=== PATIENT | female | born 1950 | race Caucasian/White ===

== ENCOUNTER → 2024-03-08 | Outpatient (CLI) | payer MEDICARE | END | disposition home or self-care (01) | LOC: SHCH 09:57 | PROVIDERS: ATTEND Internal Medicine Cardiovascular Disease | DX: I48.91 Unspecified atrial fibrillation (principal) | CPT/HCPCS: 93306 ==

== ENCOUNTER 2024-11-27 16:49 | Inpatient (IN) | payer MEDICARE ==
[~2024-11-27] VITALS: Ht 152.4 cm; Wt 78.9 kg
[2024-11-27 17:19] LABS: APPEARANCE,URINE CLEAR (CLEAR); BILIRUBIN,URINE NEGATIVE (NEGATIVE); COLOR,URINE COLORLESS (YELLOW); GLUCOSE, URINE (UA) NEGATIVE (NEGATIVE); KETONES,URINE NEGATIVE (NEGATIVE); LEUKOCYTE ESTERASE ,URINE 250 Leu/uL (NEGATIVE); NITRATE,URINE NEGATIVE (NEGATIVE); OCCULT BLOOD,URINE SMALL (NEGATIVE); PH,URINE 5.5 (5.0-8.0); PROTEIN,URINE NEGATIVE (NEGATIVE); UROBILINOGEN,URINE 0.2 mg/dL (0.2-1.0)
[2024-11-27 17:20] LABS: ADD UA MICROSCOPIC YES
[2024-11-27 17:22] LABS: BACTERIA,URINE RARE /HPF (None Seen); RBC,URINE 0-1 /HPF (0-1); SQUAMOUS EPITHELIAL CELL,UR RARE /HPF (0-2)
[2024-11-27 17:37] LABS: BASOPHILS # (AUTO) 0.05 K/uL (0.00-0.20); BASOPHILS % (AUTO) 0.4 % (0.0-5.0); EOSINOPHILS # (AUTO) 0.02 K/uL (0.00-0.70); EOSINOPHILS % (AUTO) 0.2 % (0.0-8.0); HEMATOCRIT 41.7 % (36-48); IMMATURE GRANULOCYTE ABSOLUTE 0.05 K/uL (0-1); LYMPHOCYTES # (AUTO) 1.8 K/uL (1.0-4.8); LYMPHOCYTES % (AUTO) 13.8 % (21.0-51.0); MEAN CORPUSCULAR HEMOGLOBIN 29.7 pg (27.0-33.0); MEAN CORPUSCULAR HGB CONC 33.1 g/dL (32.0-36.0); MEAN CORPUSCULAR VOLUME 89.9 fL (79-99); MONOCYTES % (AUTO) 7.3 % (3.0-13.0); NEUTROPHILS # (AUTO) 10.1 K/uL (1.8-7.7); NEUTROPHILS % (AUTO) 77.9 % (40.0-77.0); PLATELET COUNT (AUTO) 252 K/uL (130-400); RED BLOOD CELL COUNT(AUTO) 4.64 MIL/uL (4.00-5.50); RED CELL DISTRIBUTION WIDTH 13.2 % (11.0-15.5)
[2024-11-27 17:46] LABS: CREATININE 1.2 mg/dL (0.5-1.0); POTASSIUM 3.8 mmol/L (3.5-5.1)
[2024-11-27] MEDS: 0.9%NACL 1000ML 1,000 ML IV SCH (18:07)
[2024-11-27] MEDS: ketOROlac 15MG/ML VIAL (15MG/ML) IV SCH (18:07)
[2024-11-27] MEDS: morPHINE 2 MG SYG IVP SCH (18:09)
--- NOTE | 2024-11-27 18:21 | HMCIMG ---
CT ABDOMEN WITHOUT CONTRAST. CT PELVIS WITHOUT CONTRAST. INDICATION: Right flank pain TECHNIQUE: Routine transaxial imaging using 5 mm slice thickness through the abdomen and pelvis without the administration of IV contrast. Thin slice reconstructions are also provided. Coronal and sagittal reformatted images acquired for interpretation. CT was performed with one or more of the following dose reduction techniques: Automated exposure control, adjustment of the mA and/or kV according to patient size, or use of iterative reconstruction technique. COMPARISON: None FINDINGS: ON NONCONTRAST IMAGING: ABDOMEN: Heart size is normal. Trace bilateral pleural effusions. Small hiatal hernia. 4 mm curvilinear calculus is nonobstructing at the upper pole of the left kidney and punctate nonobstructing calculus detected at the midportion. Additional 2 mm nonobstructing calculus at the lower pole of the left kidney. Tiny simple left renal cyst noted. 4.7 mm calculus within the far distal right ureter just proximal to the right ureterovesicular junction contributing to moderate right hydroureteronephrosis. 4.7 mm curvilinear calculus near the lower portion of the right kidney and smaller 2 mm nonobstructing calculus at the upper portion of the right kidney. A couple of small simple right renal cysts noted. The liver is normal in size and smooth in contour without biliary duct dilation. 10.0 mm simple left hepatic lobe cyst. The spleen is normal in size and attenuation. The gallbladder appears normal. The pancreas appears normal without pancreatic duct dilation. The adrenal glands appear normal. No significant abdominal, retrocrural or retroperitoneal adenopathy noted. No evidence for intra-abdominal free air or organized fluid collection. . Mild calcific plaque is noted along the abdominal aortic and iliac vessel johnson without aneurysmal dilation. PELVIS: No abnormal calcifications within the urinary bladder or distal ureters. No evidence for free air or organized pelvic fluid collection. No significant pelvic adenopathy detected. Visualized small and large bowel loops appear unremarkable. Terminal ileum appears unremarkable. The appendix is not well-visualized in its entirety. 2.2 cm partially-calcified uterine fibroid, and a few additional smaller fibroids. Extremely shallow lumbar dextroscoliosis. IMPRESSION: 1. 4.7 mm calculus within the far distal right ureter just proximal to the right ureterovesicular junction contributing to moderate right hydroureteronephrosis. 2. Nonobstructing bilateral nephrolithiasis. 3. Chronic degenerative multi fibroid uterus. 4. Small hiatal hernia. 5. Trace bilateral pleural effusions.
[2024-11-27] MEDS: hydroMORPHone 1 MG INJ IVP SCH (19:17)
[2024-11-27] MEDS ORDERED: hydroMORPHone 1 MG INJ IVP ONE (19:30)
--- NOTE | 2024-11-27 20:11 | HP ---
[facility] HISTORY AND PHYSICAL Date of Service: November 27, 2024 Time of Service: 20:11 NIRALI MAX MD (PCP) Attending/supervising physicians: Dr. Robles and Dr. Hattie Fernandez HISTORY OF PRESENT ILLNESS: Ms. Patel is a 74-year-old female with a history of A-Fib, GERD, High Cholesterol, Heart Disease, Hypertension, IBS, Kidney Stone, and sleep apnea who presented to the emergency department for evaluation of right flank pain. The patient reports being diagnosed with a right ureter stone three days ago at [facility] ER. She was discharged home. However over the last couple of days her pain has progressively worsened. She stated the stone measures approximately 2 mm. ED provider reports that patient presented to the ED in significant amount of pain. Denies any nausea, vomiting, fever, any other pain, problem or concern. CT abdomen and pelvis without contrast: 1. 4.7 mm calculus within the far distal right ureter just proximal to the right ureterovesicular junction contributing to moderate right hydroureteronephrosis. 2. Nonobstructing bilateral nephrolithiasis. 3. Chronic degenerative multi fibroid uterus. 4. Small hiatal hernia. 5. Trace bilateral pleural effusions. In ED the patient was administered Dilaudid 1 mg, morphine 2 mg, Toradol 15 mg, NS 1 L bolus. ED provider request patient be admitted with the diagnosis of right ureteral stone, intractable pain, leukocytosis. I assessed the patient in ED hallway. The patient appeared comfortable, in no distress, breathing was even and unlabored. Patient reports pain relief with the medication administered. I informed patient of labs, diagnostics, plan of care. She verbalized understanding and is in agreement with the plan. Plan and assessment are listed below. REVIEW OF SYSTEMS 12-point ROS reviewed with patient. All pertinent positives mentioned above. Otherwise negative, noncontributory, or nonpertinent. PAST MEDICAL HISTORY: As mentioned above PAST SURGICAL HISTORY: , shoulder surgery, neck plate PAST SOCIAL HISTORY: Denied alcohol, tobacco, illicit drug use Coded Allergies: Penicillins (Unverified Allergy, Unknown, 11/27/24) nitrofurantoin (Unverified Allergy, Unknown, 11/27/24) sulfamethoxazole (Unverified Allergy, Unknown, 11/27/24) trimethoprim (Unverified Allergy, Unknown, 11/27/24) Uncoded Allergies: STEOIDS (Allergy, Unknown, 11/27/24) PHYSICAL EXAM GENERAL APPEARANCE: The patient is awake, alert, and oriented, in no acute cardiopulmonary distress. NEUROLOGICAL: Cranial nerves II-XII grossly intact. Motor is 5/5 in bilateral upper and lower extremities proximal to distal. No sensory deficits. HEENT: Face is symmetric. Pupils are equal and reactive. Extraocular movements are intact. NECK: Supple. No JVD. No thyromegaly. No submental, submandibular, pre- /postauricular, occipital or supraclavicular lymphadenopathy. CHEST: Normal chest expansion. No Telemetry. LUNGS: Absence of any rales, rhonchi or any wheezing. CARDIOVASCULAR: Regular. S1 and S2 normal. No appreciable rubs, murmurs or gallops. ABDOMEN: Soft, nontender, and nondistended. There is no rebound, voluntary guarding, or rigidity. : Deferred. No [place]. EXTREMITIES: Non-edematous and not cyanotic. No clubbing. Good capillary refill. SKIN: No skin breakdown. Vital Sign (Last 24 Hours) 11/27/24 19:23 Temp 98.4 Pulse 101 Resp 18 B/P (MAP) 168/97 Pulse Ox 98 O2 Delivery Room Air* O2 Flow Rate 0 FiO2 21 LABS: Laboratory: Test 11/27/24 17:31 11/27/24 17:12 Range/Units White Blood Count 13.0 H 4.8-10.8 K/uL Red Blood Count 4.64 4.00-5.50 MIL/uL Hemoglobin 13.8 12.0-16.0 g/dL Hematocrit 41.7 36-48 % Mean Corpuscular Volume 89.9 79-99 fL Mean Corpuscular Hemoglobin 29.7 27.0-33.0 pg Mean Corpuscular Hemoglobin Concent 33.1 32.0-36.0 g/dL Red Cell Distribution Width 13.2 11.0-15.5 % Platelet Count 252 130-400 K/uL Mean Platelet Volume 10.2 7.5-10.5 fL Immature Granulocyte % (Auto) 0.4 0-1 % Neutrophils (%) (Auto) 77.9 H 40.0-77.0 % Lymphocytes (%) (Auto) 13.8 L 21.0-51.0 % Monocytes (%) (Auto) 7.3 3.0-13.0 % Eosinophils (%) (Auto) 0.2 0.0-8.0 % Basophils (%) (Auto) 0.4 0.0-5.0 % Neutrophils # (Auto) 10.1 H 1.8-7.7 K/uL Lymphocytes # (Auto) 1.8 1.0-4.8 K/uL Monocytes # (Auto) 1.0 0.1-1.0 K/uL Eosinophils # (Auto) 0.02 0.00-0.70 K/uL Basophils # (Auto) 0.05 0.00-0.20 K/uL Absolute Immature Granulocyte (auto 0.05 0-1 K/uL Nucleated Red Blood Cells 0.0 0.0-0.19 % Sodium Level 134 L 136-145 mmol/L Potassium Level 3.8 3.5-5.1 mmol/L Chloride Level 98 L 101-111 mmol/L Carbon Dioxide Level 24 21-32 mmol/L Blood Urea Nitrogen 18 7-18 mg/dL Creatinine 1.2 H 0.5-1.0 mg/dL Glomerular Filtration Rate Calc 47 >90 mL/min Random Glucose 115 H 70-105 mg/dL Total Calcium 9.5 8.5-10.1 mg/dL Urine Color COLORLESS YELLOW Urine Appearance CLEAR CLEAR Urine pH 5.5 5.0-8.0 Urine Specific [place] 1.004 1.001-1.031 Urine Protein NEGATIVE NEGATIVE mg/dL Urine Glucose (UA) NEGATIVE NEGATIVE mg/dL Urine Ketones NEGATIVE NEGATIVE mg/dL Urine Occult Blood SMALL H NEGATIVE Urine Nitrate NEGATIVE NEGATIVE Urine Bilirubin NEGATIVE NEGATIVE mg/dL Urine Urobilinogen 0.2 0.2-1.0 mg/dL Urine Leukocyte Esterase 250 H NEGATIVE Gloria/uL Urine RBC 0-1 0-1 /HPF Urine WBC 11-25 H 0-1 /HPF Urine Squamous Epithelial Cells RARE 0-2 /HPF Urine Bacteria RARE None Seen /HPF Current Medications Medications (Trade) Dose Ordered Sig/Luis Alfredo Route PRN Reason Start Time Stop Time Status Last Admin Dose Admin Hydromorphone HCl (DiLAUDid 1MG INJ) 1 mg ONCE IVP 11/27/24 19:30 11/27/24 23:59 11/27/24 19:17 1 MG Ketorolac Tromethamine (toRADol) 15 mg ONCE IV 11/27/24 17:30 11/27/24 22:30 11/27/24 18:07 15 MG Morphine Sulfate (morPHINE 2MG SYG) 2 mg ONCE IVP 11/27/24 18:00 11/27/24 23:00 11/27/24 18:09 2 MG Sodium Chloride 1,000 ml @ 0 mls/hr ONCE IV 11/27/24 17:30 11/28/24 17:29 11/27/24 18:07 1,000 MLS/HR DIAGNOSTICS / RADIOLOGY: [ ] ASSESSMENT: 4.7 mm calculus within the far distal right ureter just proximal to the right ureterovesicular junction contributing to moderate right hydroureteronephrosis, per CT on 11/27/2024 Nonobstructing bilateral nephrolithiasis, per CT on 11/27/2024 Chronic degenerative multi fibroid uterus, per CT on 11/27/2024 Small hiatal hernia, per CT on 11/27/2024 Acute complicated cystitis, POA Trace bilateral pleural effusions, per CT on 11/27/2024 Acute kidney injury, GFR 47(no prior GFR to compare baseline renal function) Acute dehydration Leukocytosis Electrolyte derangement (hyponatremia, hypochloremia) Chronic problem list: AFib, GERD, hypercholesteremia, coronary artery disease, hypertension, IBS, kidney stones, sleep apnea Multiple antibiotic allergies (penicillin, nitrofurantoin, sulfa, trimethoprime PLAN: -Admit to medical floor. -Start Levaquin 750 mg p.o. daily. -Start LR at 75 mL an hour. (ED administered NS1 L bolus) -Strain all urine. -Consult urologist. -P.r.n. medications for: Pain management, nausea, vomiting, fever, constipation, hypertension. -Glucometer checks AC & HS needed with insulin regular sliding scale coverage as needed. -Blood pressure checks every 4 hours and as needed. -Reconcile home medications once available. -Start labetalol IV as needed systolic blood pressure greater than 160 -AM labs: monitor renal and liver function, monitor electrolytes and replace PRN -GI and DVT prophylaxis: Protonix and Lovenox ADVANCED CARE PLANNING 1. Which of the following were discussed? Hospice Care - No Therapeutic options - Yes Advance Directives - Yes Other discussions - 2. Discussed with who? Patient 3. Voluntary nature of this service was explained to the patient? Yes 4. Amount of time spent - __ over 35 minutes 5. Reviewed by Physician? (if this service was performed by NPP) Yes ATTESTATION BY PHYSICIAN I have seen and examined the patient. I reviewed the documentation, medical decision making, and treatment plan as noted by the mid-level provider above. I agree with the findings and plan of care. VINICIO YOUNG [facility] November 27, 2024 20:11
--- NOTE | 2024-11-27 20:25 | ERN ---
General Chief Complaint: Flank Pain Stated Complaint: KIDNEY STONE PAIN Time Seen by MD: 17:06 Time Seen by Midlevel: 17:06 Source: patient History of Present Illness Initial Comments The patient is a 74-year-old female presenting to the emergency department for evaluation of right flank pain. The patient reports being diagnosed with a right ureter stone three days ago at [facility]. She was discharged home. However over the last couple of days her pain has progressively worsened. She states the stone measures approximately 2 mm. On arrival the patient appears to be in significant amount of pain. Denies any nausea vomiting or fever. Denies any other symptoms Allergies: Coded Allergies: Penicillins (Unverified Allergy, Unknown, 11/27/24) nitrofurantoin (Unverified Allergy, Unknown, 11/27/24) sulfamethoxazole (Unverified Allergy, Unknown, 11/27/24) trimethoprim (Unverified Allergy, Unknown, 11/27/24) Uncoded Allergies: STEOIDS (Allergy, Unknown, 11/27/24) Past Medical History Past Medical History: A-Fib, GERD, High Cholesterol, Heart Disease, Hypertension, IBS, Kidney Stone Medical History Other: SLEEP APNEA Past Surgical History: Surgical History Other: SHOULDERS, NECK PLATE ROS Dictation CONSTITUTIONAL: Negative except for HPI HEAD/FACE: Negative except for HPI EENT: Negative except for HPI RESPIRATORY: Negative except for HPI GASTROINTESTINAL/ABDOMINAL: Negative except for HPI GENITOURINARY: Negative except for HPI MUSCULOSKELETAL: Negative except for HPI INTEGUMENTARY: Negative except for HPI NEUROLOGICAL/PSYCH: Negative except for HPI HEMATOLOGIC/LYMPHATIC: Negative except for HPI All Systems Negative, Except as noted above. 13 point review of systems assessed and all negative except for above. Physical Exam Physical Exam Dictation Vital Signs reviewed General Appearance: Alert, oriented x 3, no acute distress, well developed, nourished. Head and Face: non-traumatic. Eyes: PERRL, pink conjunctivas, eyelid no trauma, anterior chamber with arcus senilis. Ears: Pinnas intact and no signs of trauma or erythema ear canals clear and no discharge TM no erythema Nose: No discharge, no bleeding. Oropharynx: Mouth normal, tongue pink, pharynx clear,no erythema, tonsils no exudates, no abscesses noted, mucous membrane moist Neck: Supple, non-tender, no thyromegaly, no masses, no JVD, no bruits Breast:Deferred Chest:No tenderness, no crepitus, no paradoxical movement, no retractions Lungs:Clear, well-ventilated, symmetric, no rales, no wheezing, no rhonchi, no stridor, good breath sounds bilaterally Heart: Regular rate, regular rhythm, no murmur, no gallops Vascular: no peripheral edema, Abdomen: Soft, positive bowel sounds, nondistended, no guarding, nontender, no rebound, no masses no hepatomegaly, no splenomegaly, no Sanchez's sign, no hernias. Rectal: Deferred Genital: Deferred Neurological: Normal speech, motor function intact, sensory function intact Musculoskeletal right CVA tenderness Extremities: nontender, full range of motion Skin: Color pink, dry, no turgor, no rash, no lacerations, no abrasions, no contusions. Lymphatic: Deferred Results Laboratory and Microbiology Lab and Micro Result Laboratory Tests Test 11/27/24 17:12 11/27/24 17:31 Urine Color COLORLESS (YELLOW) Urine Appearance CLEAR (CLEAR) Urine pH 5.5 (5.0-8.0) Urine Specific [place] 1.004 (1.001-1.031) Urine Protein NEGATIVE mg/dL (NEGATIVE) Urine Glucose (UA) NEGATIVE mg/dL (NEGATIVE) Urine Ketones NEGATIVE mg/dL (NEGATIVE) Urine Occult Blood SMALL (NEGATIVE) H Urine Nitrate NEGATIVE (NEGATIVE) Urine Bilirubin NEGATIVE mg/dL (NEGATIVE) Urine Urobilinogen 0.2 mg/dL (0.2-1.0) Urine Leukocyte Esterase 250 Gloria/uL (NEGATIVE) H Urine RBC 0-1 /HPF (0-1) Urine WBC 11-25 /HPF (0-1) H Urine Squamous Epithelial Cells RARE /HPF (0-2) Urine Bacteria RARE /HPF (None Seen) White Blood Count 13.0 K/uL (4.8-10.8) H Red Blood Count 4.64 MIL/uL (4.00-5.50) Hemoglobin 13.8 g/dL (12.0-16.0) Hematocrit 41.7 % (36-48) Mean Corpuscular Volume 89.9 fL (79-99) Mean Corpuscular Hemoglobin 29.7 pg (27.0-33.0) Mean Corpuscular Hemoglobin Concent 33.1 g/dL (32.0-36.0) Red Cell Distribution Width 13.2 % (11.0-15.5) Platelet Count 252 K/uL (130-400) Mean Platelet Volume 10.2 fL (7.5-10.5) Immature Granulocyte % (Auto) 0.4 % (0-1) Neutrophils (%) (Auto) 77.9 % (40.0-77.0) H Lymphocytes (%) (Auto) 13.8 % (21.0-51.0) L Monocytes (%) (Auto) 7.3 % (3.0-13.0) Eosinophils (%) (Auto) 0.2 % (0.0-8.0) Basophils (%) (Auto) 0.4 % (0.0-5.0) Neutrophils # (Auto) 10.1 K/uL (1.8-7.7) H Lymphocytes # (Auto) 1.8 K/uL (1.0-4.8) Monocytes # (Auto) 1.0 K/uL (0.1-1.0) Eosinophils # (Auto) 0.02 K/uL (0.00-0.70) Basophils # (Auto) 0.05 K/uL (0.00-0.20) Absolute Immature Granulocyte (auto 0.05 K/uL (0-1) Nucleated Red Blood Cells 0.0 % (0.0-0.19) Sodium Level 134 mmol/L (136-145) L Potassium Level 3.8 mmol/L (3.5-5.1) Chloride Level 98 mmol/L (101-111) L Carbon Dioxide Level 24 mmol/L (21-32) Blood Urea Nitrogen 18 mg/dL (7-18) Creatinine 1.2 mg/dL (0.5-1.0) H Glomerular Filtration Rate Calc 47 mL/min (>90) Random Glucose 115 mg/dL (70-105) H Total Calcium 9.5 mg/dL (8.5-10.1) Labs Reviewed?: Yes MDM MDM: Differential diagnosis: Ureter stone, pyelonephritis, urinary tract infection, MOLINA Rationale: Tests considered and ordered secondary to shared decision making include: Previous outside records reviewed: Old ER visits. Risk of complication and/or morbidity or mortality of patient management: None Medications-Per medication reconciliation Need for hospitalization: Patient does meet criteria for hospitalization. Need for emergency major/minor surgery: No There are no social concerns with this patient. Prescription drug management Prescriptions will include symptomatic care Patient's prior external medical records from other ER visits were reviewed by me as indicated. Prior testing and results from previous visits were reviewed. Prior tests were taken into account with medical decision making and resource utilization, independent historian/historians were used to obtain complete medical history. I independently interpreted the test that were performed, results were reviewed by me and considered findings on radiology if ordered. Medical management and examination interpretation discussions were had by me with other qualified healthcare professionals as indicated for the patient's care. ED Course Orders Procedure Category Date Status Time Cbc With Differential LAB 11/27/24 Complete 17:10 Basic Metabolic Panel LAB 11/27/24 Complete 17:10 Urinalysis Profile LAB 11/27/24 Complete 17:10 0.9%Nacl 1000ml (Ns PHA 11/27/24 In Process 1000ml) 17:30 Ketorolac PHA 11/27/24 In Process Tromethamine 15mg/Ml 17:30 Culture Urine FELIPE 11/27/24 In Process 17:20 Ct Abdomen/Pelvis W/O CT 11/27/24 Resulted Contrast 17:48 Morphine 2mg Syg PHA 11/27/24 In Process (Morphine 2mg Syg) 18:00 Hydromorphone 1 Mg PHA 11/27/24 Complete Inj (Dilaudid 1mg Inj 19:30 Hydromorphone 1 Mg PHA 11/27/24 In Process Inj (Dilaudid 1mg Inj 19:30 Current Medications Medications (Trade) Dose Ordered Sig/Luis Alfredo Route PRN Reason Start Time Stop Time Status Last Admin Dose Admin Hydromorphone HCl (DiLAUDid 1MG INJ) 1 mg ONCE IVP 11/27/24 19:30 11/27/24 23:59 11/27/24 19:17 Hydromorphone HCl (DiLAUDid 1MG INJ) 1 mg ONCE ONCE IVP 11/27/24 19:30 11/27/24 19:12 DC Ketorolac Tromethamine (toRADol) 15 mg ONCE IV 11/27/24 17:30 11/27/24 22:30 11/27/24 18:07 Morphine Sulfate (morPHINE 2MG SYG) 2 mg ONCE IVP 11/27/24 18:00 11/27/24 23:00 11/27/24 18:09 Sodium Chloride 1,000 ml @ 0 mls/hr ONCE IV 11/27/24 17:30 11/28/24 17:29 11/27/24 18:07 Vital Signs Date Time Temp Pulse Resp B/P (MAP) Pulse Ox O2 Delivery O2 Flow Rate FiO2 11/27/24 19:23 98.4 101 18 168/97 98 Room Air* 0 21 11/27/24 18:18 101 18 201/110 99 Room Air* 0 21 11/27/24 16:53 98.4 101 16 175/94 98 Room Air 0 [facility] [address] [place] [address] [id number] IMAGING REPORT Signed PATIENT: YURIY HOWELL MR#: [id number] : 1950 SEX: F AGE: 74 LOCATION: ED ORDER 48 STATUS: REG REPORT#: [id number] SERVICE 47 REASON: r/flank pain r/o ureter stone ORDERING PHYSICIAN: VIN GALICIA PROCEDURE: ABD PEL WO - CT ABDOMEN/PELVIS W/O CONTRAST CT ABDOMEN WITHOUT CONTRAST. CT PELVIS WITHOUT CONTRAST. INDICATION: Right flank pain TECHNIQUE: Routine transaxial imaging using 5 mm slice thickness through the abdomen and pelvis without the administration of IV contrast. Thin slice reconstructions are also provided. Coronal and sagittal reformatted images acquired for interpretation. CT was performed with one or more of the following dose reduction techniques: Automated exposure control, adjustment of the mA and/or kV according to patient size, or use of iterative reconstruction technique. COMPARISON: None FINDINGS: ON NONCONTRAST IMAGING: ABDOMEN: Heart size is normal. Trace bilateral pleural effusions. Small hiatal hernia. 4 mm curvilinear calculus is nonobstructing at the upper pole of the left kidney and punctate nonobstructing calculus detected at the midportion. Additional 2 mm nonobstructing calculus at the lower pole of the left kidney. Tiny simple left renal cyst noted. 4.7 mm calculus within the far distal right ureter just proximal to the right ureterovesicular junction contributing to moderate right hydroureteronephrosis. 4.7 mm curvilinear calculus near the lower portion of the right kidney and smaller 2 mm nonobstructing calculus at the upper portion of the right kidney. A couple of small simple right renal cysts noted. The liver is normal in size and smooth in contour without biliary duct dilation. 10.0 mm simple left hepatic lobe cyst. The spleen is normal in size and attenuation. The gallbladder appears normal. The pancreas appears normal without pancreatic duct dilation. The adrenal glands appear normal. No significant abdominal, retrocrural or retroperitoneal adenopathy noted. No evidence for intra-abdominal free air or organized fluid collection. . Mild calcific plaque is noted along the abdominal aortic and iliac vessel johnson without aneurysmal dilation. PELVIS: No abnormal calcifications within the urinary bladder or distal ureters. No evidence for free air or organized pelvic fluid collection. No significant pelvic adenopathy detected. Visualized small and large bowel loops appear unremarkable. Terminal ileum appears unremarkable. The appendix is not well-visualized in its entirety. 2.2 cm partially-calcified uterine fibroid, and a few additional smaller fibroids. Extremely shallow lumbar dextroscoliosis. IMPRESSION: 1. 4.7 mm calculus within the far distal right ureter just proximal to the right ureterovesicular junction contributing to moderate right hydroureteronephrosis. 2. Nonobstructing bilateral nephrolithiasis. 3. Chronic degenerative multi fibroid uterus. 4. Small hiatal hernia. 5. Trace bilateral pleural effusions. DICTATED BY: SOPHIA GRNAT MD DATE: 11/27/241814 ELECTRONICALLY SIGNED BY: SOPHIA GRANT MD DATE: 11/27/24 182 DX & DISP Disposition: Inpatient Departure Impression: Primary Impression: Right ureteral stone Additional Impressions: Intractable pain, Leukocytosis Condition: Stable Referrals: NIRALI MAX MD (PCP) I have reviewed the case, and I agree with, Diagnosis and Plan I performed the substantive portion of the visit. I have reviewed and personally made and approve the management plan that is documented in the note by myself or the ZOYA. I acknowledge for responsibility for the patient's managem ent plan. VIN GALICIA November 27, 2024 20:25
[2024-11-27 22:50] VITALS: BP 167/98; PULSE 89; RESP 20; TEMP 98.3
[2024-11-28] VITALS (7 sets, daily range): BP systolic 124–155; BP diastolic 79–98; PULSE 81–92; RESP 16–21; TEMP 97.8–98.6; O2SAT 94
[2024-11-28] MEDS ORDERED: acetaMINOPHEN 650 MG SUPPOSITORY RC PRN
[2024-11-28] MEDS ORDERED: acetaMINOPHEN 325 MG TAB PO PRN
[2024-11-28] MEDS ORDERED: TEMAZepam 15 MG CAPSULE PO PRN
[2024-11-28] MEDS ORDERED: LAbetaLOL 20MG SYG IV PRN
[2024-11-28] MEDS ORDERED: LACTULOSE 20 GM/30 ML UDCUP PO PRN
[2024-11-28] MEDS ORDERED: ondanSETRON 4MG INJ IVP PRN
[2024-11-28] MEDS ORDERED: HYDROcodone/APAP 5/325 1 TAB TABLET PO PRN
[2024-11-28] MEDS ORDERED: hydroMORPHone 1 MG INJ IVP PRN
[2024-11-28] MEDS: LACTATED RINGERS 1000ML 1,000 ML IV SCH (00:35)
[2024-11-28] MEDS: levoFLOXacin 750 MG/D5W 150ML BAG IV SCH (00:35)
[2024-11-28] MEDS ORDERED: METO-408 PO (00:51)
[2024-11-28] MEDS: INSULIN humuLIN R 100 UNIT/ML 3ML SQ SCH (04:52)
[2024-11-28 05:20] LABS: HEMATOCRIT 39.8 % (36-48); MEAN CORPUSCULAR HEMOGLOBIN 29.6 pg (27.0-33.0); MEAN CORPUSCULAR HGB CONC 32.9 g/dL (32.0-36.0); MEAN CORPUSCULAR VOLUME 89.8 fL (79-99); RED BLOOD CELL COUNT(AUTO) 4.43 MIL/uL (4.00-5.50); RED CELL DISTRIBUTION WIDTH 13.1 % (11.0-15.5); WHITE BLOOD COUNT (AUTO) 9.4 K/uL (4.8-10.8)
[2024-11-28 05:43] LABS: ALBUMIN 3.2 g/dL (3.5-5.0); BILIRUBIN,TOTAL 0.8 mg/dL (0.2-1.0); CREATININE 1.3 mg/dL (0.5-1.0); MAGNESIUM 2.4 mg/dL (1.80-2.40); PHOSPHORUS 3.5 mg/dL (2.5-4.9); POTASSIUM 3.8 mmol/L (3.5-5.1); THYROID STIMULATING HORMONE 2.15 uIU/mL (0.36-3.74); TOTAL PROTEIN, SERUM 7.4 g/dL (6.0-8.3)
[2024-11-28 05:55] LABS: HEMOGLOBIN A1C 6.1 % (4.0-6.0)
[2024-11-28] MEDS ORDERED: MAGNESIUM 2GM PREMIX 50ML 50 ML IV PRN (08:30)
[2024-11-28] MEDS ORDERED: PoTASSium chloRIDE 20MEQ ER 20 MEQ ERTAB PO PRN (08:30)
[2024-11-28] MEDS ORDERED: PoTASSium chloRIDE 20MEQ/100ML 100 ML IV PRN (08:30)
[2024-11-28] MEDS ORDERED: PoTASSium chl 10% ELIXIR 20MEQ 20 MEQ/15 ML UDCUP PO PRN (08:30)
--- NOTE | 2024-11-28 08:35 | PN ---
[facility] PROGRESS NOTE Date of Service: November 28, 2024 Time of Service: 08:26 SUBJECTIVE: [ ] admission date: 11/27/24 PCP: Kiko Varner MD Ms. Patel is a 74-year-old female with a history of A-Fib, GERD, High Cholesterol, Heart Disease, Hypertension, IBS, Kidney Stone, and sleep apnea who presented to the emergency department for evaluation of right flank pain. The patient reports being diagnosed with a right ureter stone three days ago at [facility] ER. She was discharged home. However over the last couple of days her pain has progressively worsened. She stated the stone measures approximately 2 mm[address] on this admission CT abdomen and pelvis without contrast revealed a 1. 4.7 mm calculus within the far distal right ureter just proximal to the right ureterovesicular junction contributing to moderate right hydroureteronephrosis. 11/28/24 patient is seen patient was evaluated patient is fully awake alert oriented x3. patient has dull pain to her right flank was medicated earlier waiting for urologists recommendations. Answer all questions. REVIEW OF SYSTEMS 12-point ROS reviewed with patient. All pertinent positives mentioned above. Otherwise negative, noncontributory, or nonpertinent. PHYSICAL EXAM GENERAL APPEARANCE: The patient is awake, alert, and oriented, in no acute cardiopulmonary distress. NEUROLOGICAL: Cranial nerves II-XII grossly intact. Motor is 5/5 in bilateral upper and lower extremities proximal to distal. No sensory deficits. HEENT: Face is symmetric. Pupils are equal and reactive. Extraocular movements are intact. NECK: Supple. No JVD. No thyromegaly. No submental, submandibular, pre- /postauricular, occipital or supraclavicular lymphadenopathy. CHEST: Normal chest expansion. No Telemetry. LUNGS: Absence of any rales, rhonchi or any wheezing. CARDIOVASCULAR: Regular. S1 and S2 normal. No appreciable rubs, murmurs or gallops. ABDOMEN: Soft, nontender, and nondistended. There is no rebound, voluntary guarding, or rigidity. : Deferred. No [place]. EXTREMITIES: Non-edematous and not cyanotic. No clubbing. Good capillary refill. SKIN: No skin breakdown. Vital Signs (last 8hr) Date Time Temp Pulse Resp B/P (MAP) Pulse Ox O2 Delivery O2 Flow Rate FiO2 11/28/24 08:03 98.4 82 18 149/89 100 Room Air 11/28/24 03:10 98.6 88 20 133/80 97 Room Air LABS: Laboratory: Test 11/28/24 04:51 11/28/24 04:28 11/27/24 17:31 11/27/24 17:12 Range/Units Whole Blood Glucose 108 70-110 MG/DL White Blood Count 9.4 # 4.8-10.8 K/uL Red Blood Count 4.43 4.00-5.50 MIL/uL Hemoglobin 13.1 12.0-16.0 g/dL Hematocrit 39.8 36-48 % Mean Corpuscular Volume 89.8 79-99 fL Mean Corpuscular Hemoglobin 29.6 27.0-33.0 pg Mean Corpuscular Hemoglobin Concent 32.9 32.0-36.0 g/dL Red Cell Distribution Width 13.1 11.0-15.5 % Platelet Count 232 130-400 K/uL Mean Platelet Volume 10.4 7.5-10.5 fL Nucleated Red Blood Cells 0.0 0.0-0.19 % Sodium Level 138 136-145 mmol/L Potassium Level 3.8 3.5-5.1 mmol/L Chloride Level 102 101-111 mmol/L Carbon Dioxide Level 26 21-32 mmol/L Blood Urea Nitrogen 13 7-18 mg/dL Creatinine 1.3 H 0.5-1.0 mg/dL Glomerular Filtration Rate Calc 43 >90 mL/min Random Glucose 104 70-105 mg/dL Hemoglobin A1c 6.1 H 4.0-6.0 % Estimated Average Glucose (eAG) 128 H 70-126 mg/dL Total Calcium 8.6 8.5-10.1 mg/dL Phosphorus Level 3.5 2.5-4.9 mg/dL Magnesium Level 2.40 1.80-2.40 mg/dL Total Bilirubin 0.8 0.2-1.0 mg/dL Aspartate Amino Transf (AST/SGOT) 20 10-37 U/L Alanine Aminotransferase (ALT/SGPT) 21 12-78 U/L Alkaline Phosphatase 72 50-136 U/L Total Protein 7.4 6.0-8.3 g/dL Albumin 3.2 L 3.5-5.0 g/dL Thyroid Stimulating Hormone (TSH) 2.15 0.36-3.74 uIU/mL Immature Granulocyte % (Auto) 0.4 0-1 % Neutrophils (%) (Auto) 77.9 H 40.0-77.0 % Lymphocytes (%) (Auto) 13.8 L 21.0-51.0 % Monocytes (%) (Auto) 7.3 3.0-13.0 % Eosinophils (%) (Auto) 0.2 0.0-8.0 % Basophils (%) (Auto) 0.4 0.0-5.0 % Neutrophils # (Auto) 10.1 H 1.8-7.7 K/uL Lymphocytes # (Auto) 1.8 1.0-4.8 K/uL Monocytes # (Auto) 1.0 0.1-1.0 K/uL Eosinophils # (Auto) 0.02 0.00-0.70 K/uL Basophils # (Auto) 0.05 0.00-0.20 K/uL Absolute Immature Granulocyte (auto 0.05 0-1 K/uL Urine Color COLORLESS YELLOW Urine Appearance CLEAR CLEAR Urine pH 5.5 5.0-8.0 Urine Specific [place] 1.004 1.001-1.031 Urine Protein NEGATIVE NEGATIVE mg/dL Urine Glucose (UA) NEGATIVE NEGATIVE mg/dL Urine Ketones NEGATIVE NEGATIVE mg/dL Urine Occult Blood SMALL H NEGATIVE Urine Nitrate NEGATIVE NEGATIVE Urine Bilirubin NEGATIVE NEGATIVE mg/dL Urine Urobilinogen 0.2 0.2-1.0 mg/dL Urine Leukocyte Esterase 250 H NEGATIVE Gloria/uL Urine RBC 0-1 0-1 /HPF Urine WBC 11-25 H 0-1 /HPF Urine Squamous Epithelial Cells RARE 0-2 /HPF Urine Bacteria RARE None Seen /HPF Current Medications Medications (Trade) Dose Ordered Sig/Luis Alfredo Route PRN Reason Start Time Stop Time Status Last Admin Dose Admin Acetaminophen (TYLenol 325MG TAB) 650 mg Q6H PRN PO FEVER/MILD PAIN LEVEL 1-3 11/28/24 00:00 12/28/24 00:00 Acetaminophen (TYLenol 650MG SUPPOSITORY) 650 mg Q6H PRN RC FEVER / MILD PAIN 1-3 IF NPO 11/28/24 00:00 12/28/24 00:00 Acetaminophen/ Hydrocodone Bitart (NORco 5/325MG) 1 tab Q6H PRN PO PAIN LEVEL 4 TO 6 11/28/24 00:00 11/28/24 07:41 DC Acetaminophen/ Hydrocodone Bitart (NORco 5/325MG) 2 tab Q6H PRN PO PAIN LEVEL 7 TO 10 11/27/24 23:45 12/02/24 23:44 Docusate Sodium (COLace 100MG CAP) 100 mg BID PRN PO c 11/28/24 00:00 12/28/24 00:00 Hydromorphone HCl (DiLAUDid 1MG INJ) 1 mg ONCE IVP 11/27/24 19:30 11/27/24 23:56 DC 11/27/24 19:17 1 MG Hydromorphone HCl (DiLAUDid 1MG INJ) 1 mg Q4H PRN IVP SEVERE PAIN (7-10) 11/28/24 00:00 11/28/24 07:41 DC Insulin Human Regular (humuLIN R 100 UNIT/ML 3ML) INSULIN SLIDING SCAL... ACHS SQ 11/28/24 07:30 12/28/24 07:29 Ketorolac Tromethamine (toRADol) 15 mg ONCE IV 11/27/24 17:30 11/27/24 22:30 DC 11/27/24 18:07 15 MG Ketorolac Tromethamine (toRADol) 15 mg Q6H PRN IM MODERATE PAIN (4-6) 11/28/24 00:00 12/03/24 00:00 Labetalol HCl (TRANdate 20MG SYG) 10 mg Q2H PRN IV SBP GREATER THAN 180 11/28/24 00:00 12/28/24 00:00 Lactated Ringer's 1,000 ml @ 75 mls/hr [id number] IV 11/28/24 00:00 12/28/24 00:00 11/28/24 00:35 75 MLS/HR Lactulose (Constulose 20gm/ 30ml Udcup) 20 gm Q6H PRN PO CONSTIPATION 11/28/24 00:00 12/28/24 00:00 Levofloxacin/ Dextrose (LEvaquIN 750 MG/ D5W 150 ML) 750 mg Q48H IV 11/27/24 23:50 12/07/24 23:49 11/28/24 00:35 750 MG Morphine Sulfate (morPHINE 2MG SYG) 2 mg ONCE IVP 11/27/24 18:00 11/27/24 23:00 DC 11/27/24 18:09 2 MG Ondansetron HCl (zoFRAN 4MG INJ) 4 mg Q6H PRN IVP NAUSEA/VOMITING 11/28/24 00:00 12/28/24 00:00 Pantoprazole Sodium (PROTonix 40MG TAB) 40 mg DAILY PO 11/28/24 09:00 12/28/24 08:59 Sodium Chloride 1,000 ml @ 0 mls/hr ONCE IV 11/27/24 17:30 11/28/24 17:29 11/27/24 18:07 1,000 MLS/HR Temazepam (restORIL 15 MG CAP) 15 mg HS PRN PO INSOMNIA/SLEEP 11/28/24 00:00 12/28/24 00:00 DIAGNOSTICS / RADIOLOGY: [ ] ASSESSMENT: 4.7 mm calculus within the far distal right ureter just proximal to the right ureterovesicular junction contributing to moderate right hydroureteronephrosis, per CT on 11/27/2024 Nonobstructing bilateral nephrolithiasis, per CT on 11/27/2024 Chronic degenerative multi fibroid uterus, per CT on 11/27/2024 Small hiatal hernia, per CT on 11/27/2024 Acute complicated cystitis, POA Trace bilateral pleural effusions, per CT on 11/27/2024 Acute kidney injury, GFR 47(no prior GFR to compare baseline renal function) Acute dehydration Leukocytosis Electrolyte derangement (hyponatremia, hypochloremia) Chronic problem list: AFib, GERD, hypercholesteremia, coronary artery disease, hypertension, IBS, kidney stones, sleep apnea Multiple antibiotic allergies (penicillin, nitrofurantoin, sulfa, trimethoprime PLAN: -Admit to medical floor. -Consult urologist. will wait for recommendations. antibiotic: Levaquin 750 mg p.o. daily. IVF's; LR at 75 mL an hour. Flomax 0.4 mg po daily Strain all urine. replaced electrolytes as needed basis to keep K+ above 4.0 and Mag above 2.0 -P.r.n. medications for: cont with Pain management, -Glucometer checks AC & HS needed with insulin regular sliding scale coverage as needed. -GI and DVT prophylaxis: Protonix and Lovenox all questions answered further orders as response to tx and specialist recommendations. ATTESTATION BY PHYSICIAN I have seen and examined the patient. I reviewed the documentation, medical decision making, and treatment plan as noted by the mid-level provider above. I agree with the findings and plan of care. MAKSIM ORLANDO MD, ELIZABETH NP November 28, 2024 08:35
[2024-11-28] MEDS: PANTOPrazole 40 MG TAB DR PO SCH (10:15)
[2024-11-28] MEDS: tamSULOsin HCL 0.4 MG CAP.ER.24H PO SCH (10:15)
--- NOTE | 2024-11-28 11:49 | NUR ---
DCP: HOME Pt currently lives in her home with her Jesús Patel [phone]. pt does not report any food, custodial, and/or utilities insecurities. Pt does not have any DME, home health, or provider services. Pt is able to complete ADLs independently. PCP is Dr. Kiko Varner and uses [facility] for any RX needs. At [place] pt would go home and will assist with transportation. Addendum: 11/28/24 at 1152 by MIMA MCGOWAN SS Amended: Links added.
[2024-11-28] MEDS: metOPROLol sucCINATE 25 MG TAB.SR.24H PO SCH (16:35)
[2024-11-28] MEDS: HYDROcodone/APAP 5/325 1 TAB TABLET PO PRN (22:46)
--- NOTE | 2024-11-28 22:50 | CONS ---
CONSULTATION NOTE Date of Service: November 28, 2024 Reason for Consultation: Obstructing 4.7 mm calculus in the right distal ureter Requesting Physician: Hospitalist HISTORY OF PRESENT ILLNESS: 74-year-old female with presented to the emergency department for evaluation of right flank pain. The patient reports being diagnosed with a right ureter stone three days ago at [facility]. She was discharged home. However over the last couple of days her pain has progressively worsened. She stated the stone measures approximately several mm. ED provider reports that patient presented to the ED in significant amount of pain, described as a dull ache in the right flank region radiating to right groin, severity at the time of presentation was a 10 on a scale of 1-10.. Denies any nausea, vomiting, fever, any other pain, problem or concern. CT abdomen and pelvis without contrast: 1. 4.7 mm calculus within the far distal right ureter just proximal to the right ureterovesicular junction contributing to moderate right hydroureteronephrosis. 2. Nonobstructing bilateral nephrolithiasis. 3. Chronic degenerative multi fibroid uterus. 4. Small hiatal hernia. 5. Trace bilateral pleural effusions. Patient was admitted to the floor for supportive care with a urological consult. REVIEW OF SYSTEMS CONSTITUTIONAL: Denies fever, chills, or fatigue. HEAD/FACE: No signs of trauma. EENT: Denies eye pain, blurred vision, double vision, or light sensitivity. RESPIRATORY: Denies shortness of breath, cough, wheezing CARDIOVASCULAR: Denies chest pain, palpitation, syncope GASTROINTESTINAL/ABDOMINAL: Denies abdominal pain, constipation, diarrhea, nausea or vomiting GENITOURINARY: Flank pain MUSCULOSKELETAL: Denies joint pain, tenderness, or trauma. INTEGUMENTARY: Denies rash or itchiness NEUROLOGICAL/PSYCH: Denies anxiety, depression, heat or cold intolerance. PAST MEDICAL HISTORY: Atrial fibrillation Gastroesophageal reflux disease Hypercholesteremia Coronary arterial disease Hypertension Irritable bowel syndrome Nephrolithiasis Obstructive sleep apnea PAST SURGICAL HISTORY: Kidney stone procedure PAST SOCIAL HISTORY: Denies smoking Denies ethanol Denies recreational drugs FAMILY HISTORY: Noncontributory to presenting complaint Coded Allergies: Penicillins (Unverified Allergy, Unknown, 11/27/24) nitrofurantoin (Unverified Allergy, Unknown, 11/27/24) sulfamethoxazole (Unverified Allergy, Unknown, 11/27/24) trimethoprim (Unverified Allergy, Unknown, 11/27/24) Uncoded Allergies: STEOIDS (Allergy, Unknown, 11/27/24) PHYSICAL EXAM EYES: Anicteric. Pupils equal and reactive. HENT: No oral thrush seen, moist Oral mucosa NECK: Supple, no JVD or thyromegaly. LUNGS: Good air entry. No rales, no rhonchi. CARDIOVASCULAR: S1, S2 regular. No murmur heard. ABDOMEN: Soft, non tender, bowel sounds present, no organomegaly CENTRAL NERVOUS SYSTEM: Awake, alert, oriented x 3. No focal deficits. SKIN: No rashes, no swelling. LYMPHATICS: No peripheral lymphadenopathy MUSCULOSKELETAL: No joint swelling, erythema or tenderness. EXTREMITIES: No cyanosis or clubbing BACK: No deformity, no pressure ulcer. GENITOURINARY: No costovertebral angle tenderness, genitalia is normal Vital Sign (Last 24 Hours) 11/28/24 11/28/24 08:00 20:16 Temp 97.9 Pulse 84 Resp 20 B/P (MAP) 125/79 Pulse Ox 94 O2 Delivery Room Air O2 Flow Rate 0 FiO2 21 Intake & Output (last 24hrs) 11/27/24 11/27/24 11/28/24 15:00 23:00 07:00 Output Total 900 ml Balance -900 ml LABS: Laboratory: Test 11/28/24 19:49 11/28/24 04:28 11/27/24 17:31 11/27/24 17:12 Range/Units Whole Blood Glucose 122 H 70-110 MG/DL White Blood Count 9.4 # 4.8-10.8 K/uL Red Blood Count 4.43 4.00-5.50 MIL/uL Hemoglobin 13.1 12.0-16.0 g/dL Hematocrit 39.8 36-48 % Mean Corpuscular Volume 89.8 79-99 fL Mean Corpuscular Hemoglobin 29.6 27.0-33.0 pg Mean Corpuscular Hemoglobin Concent 32.9 32.0-36.0 g/dL Red Cell Distribution Width 13.1 11.0-15.5 % Platelet Count 232 130-400 K/uL Mean Platelet Volume 10.4 7.5-10.5 fL Nucleated Red Blood Cells 0.0 0.0-0.19 % Sodium Level 138 136-145 mmol/L Potassium Level 3.8 3.5-5.1 mmol/L Chloride Level 102 101-111 mmol/L Carbon Dioxide Level 26 21-32 mmol/L Blood Urea Nitrogen 13 7-18 mg/dL Creatinine 1.3 H 0.5-1.0 mg/dL Glomerular Filtration Rate Calc 43 >90 mL/min Random Glucose 104 70-105 mg/dL Hemoglobin A1c 6.1 H 4.0-6.0 % Estimated Average Glucose (eAG) 128 H 70-126 mg/dL Total Calcium 8.6 8.5-10.1 mg/dL Phosphorus Level 3.5 2.5-4.9 mg/dL Magnesium Level 2.40 1.80-2.40 mg/dL Total Bilirubin 0.8 0.2-1.0 mg/dL Aspartate Amino Transf (AST/SGOT) 20 10-37 U/L Alanine Aminotransferase (ALT/SGPT) 21 12-78 U/L Alkaline Phosphatase 72 50-136 U/L Total Protein 7.4 6.0-8.3 g/dL Albumin 3.2 L 3.5-5.0 g/dL Thyroid Stimulating Hormone (TSH) 2.15 0.36-3.74 uIU/mL Immature Granulocyte % (Auto) 0.4 0-1 % Neutrophils (%) (Auto) 77.9 H 40.0-77.0 % Lymphocytes (%) (Auto) 13.8 L 21.0-51.0 % Monocytes (%) (Auto) 7.3 3.0-13.0 % Eosinophils (%) (Auto) 0.2 0.0-8.0 % Basophils (%) (Auto) 0.4 0.0-5.0 % Neutrophils # (Auto) 10.1 H 1.8-7.7 K/uL Lymphocytes # (Auto) 1.8 1.0-4.8 K/uL Monocytes # (Auto) 1.0 0.1-1.0 K/uL Eosinophils # (Auto) 0.02 0.00-0.70 K/uL Basophils # (Auto) 0.05 0.00-0.20 K/uL Absolute Immature Granulocyte (auto 0.05 0-1 K/uL Urine Color COLORLESS YELLOW Urine Appearance CLEAR CLEAR Urine pH 5.5 5.0-8.0 Urine Specific [place] 1.004 1.001-1.031 Urine Protein NEGATIVE NEGATIVE mg/dL Urine Glucose (UA) NEGATIVE NEGATIVE mg/dL Urine Ketones NEGATIVE NEGATIVE mg/dL Urine Occult Blood SMALL H NEGATIVE Urine Nitrate NEGATIVE NEGATIVE Urine Bilirubin NEGATIVE NEGATIVE mg/dL Urine Urobilinogen 0.2 0.2-1.0 mg/dL Urine Leukocyte Esterase 250 H NEGATIVE Gloria/uL Urine RBC 0-1 0-1 /HPF Urine WBC 11-25 H 0-1 /HPF Urine Squamous Epithelial Cells RARE 0-2 /HPF Urine Bacteria RARE None Seen /HPF DIAGNOSTICS / RADIOLOGY: CT stone protocol obtained in the emergency department today 11/28/2024 reviewed. Small bilateral nonobstructing stones. Right-sided hydroureteronephrosis down to an obstructing 4.7 mm calculus several cm from the right UVJ. There is a possibility of a calcification of the uterine wall. Right-sided nephromegaly. ASSESSMENT: 74-year-old female presents to the hospital with a an obstructing right ureteral calculus diagnosed a few days ago at [facility] in [place], presented because of worsening symptoms. PLAN: 1. It is very unfortunate that this patient was kept NPO all day. When I met wi th patient she was more upset about being made NPO then anything us. The decision to take patient to the operating room has to be a coordinated one. Even though we appreciate our non surgical colleagues trying to get patient is ready for the operating room by making them NPO, if they do not conferred with the us, to make sure we available to take the patient to the operating room then patients get very dissatisfied. 2. I have had a long conversation with this patient, she has responded to conservative management this evening. We are making plans to bring her to the operating room tomorrow 11/29/2024. I was very breanna with the patient that I would not be available for surgical intervention until late in the evening. To that regard and as usual, I will put in the my orders in anticipation for the procedure tomorrow. 3. If however patient passes the stone between now and tomorrow evening when we plan for surgical intervention then of course a trip to the up breathing room will be obviated 4. Thank you for involving us in the care of this patient 60 minutes spent to complete a consult, more than half of the time spent in counseling and coordination of care and addressing all questions and concerns post by patient, some time was spent discussing with members of her care team, the rest of the time was spent reviewing medical records past and present, including laboratory and imaging data from this admission. ZOYA REMY MD November 28, 2024 22:50
[2024-11-29] VITALS (21 sets, daily range): BP systolic 109–168; BP diastolic 77–120; PULSE 71–95; RESP 15–20; TEMP 97.4–98.3; O2SAT 96–97
[2024-11-29] MEDS: ketOROlac 15MG/ML VIAL (15MG/ML) IM PRN (00:26)
[2024-11-29 05:34] LABS: BASOPHILS # (AUTO) 0.06 K/uL (0.00-0.20); BASOPHILS % (AUTO) 0.6 % (0.0-5.0); EOSINOPHILS # (AUTO) 0.15 K/uL (0.00-0.70); EOSINOPHILS % (AUTO) 1.5 % (0.0-8.0); HEMATOCRIT 41.9 % (36-48); IMMATURE GRANULOCYTE ABSOLUTE 0.03 K/uL (0-1); LYMPHOCYTES # (AUTO) 3.2 K/uL (1.0-4.8); LYMPHOCYTES % (AUTO) 30.7 % (21.0-51.0); MEAN CORPUSCULAR HEMOGLOBIN 29.8 pg (27.0-33.0); MEAN CORPUSCULAR HGB CONC 32.5 g/dL (32.0-36.0); MEAN CORPUSCULAR VOLUME 91.9 fL (79-99); MONOCYTES % (AUTO) 9.4 % (3.0-13.0); NEUTROPHILS # (AUTO) 5.9 K/uL (1.8-7.7); NEUTROPHILS % (AUTO) 57.5 % (40.0-77.0); PLATELET COUNT (AUTO) 262 K/uL (130-400); RED BLOOD CELL COUNT(AUTO) 4.56 MIL/uL (4.00-5.50); RED CELL DISTRIBUTION WIDTH 13.2 % (11.0-15.5); WHITE BLOOD COUNT (AUTO) 10.3 K/uL (4.8-10.8)
[2024-11-29 06:08] LABS: ALBUMIN 3.4 g/dL (3.5-5.0); BILIRUBIN,TOTAL 0.5 mg/dL (0.2-1.0); CREATININE 1.4 mg/dL (0.5-1.0); MAGNESIUM 2.1 mg/dL (1.80-2.40); TOTAL PROTEIN, SERUM 7.6 g/dL (6.0-8.3)
--- NOTE | 2024-11-29 11:15 | PN ---
[facility] PROGRESS NOTE Date of Service: November 29, 2024 Time of Service: 11:12 SUBJECTIVE: [ ] admission date: 11/27/24 PCP: Kiko Varner MD Ms. Patel is a 74-year-old female with a history of A-Fib, GERD, High Cholesterol, Heart Disease, Hypertension, IBS, Kidney Stone, and sleep apnea who presented to the emergency department for evaluation of right flank pain. The patient reports being diagnosed with a right ureter stone three days ago at [facility] ER. She was discharged home. However over the last couple of days her pain has progressively worsened. She stated the stone measures approximately 2 mm. on this admission CT abdomen and pelvis without contrast revealed a 1. 4.7 mm calculus within the far distal right ureter just proximal to the right ureterovesicular junction contributing to moderate right hydroureteronephrosis. 11/28/24 patient is seen patient was evaluated patient is fully awake alert oriented x3. patient has dull pain to her right flank was medicated earlier waiting for urologists recommendations. Answer all questions. 11/29/24 patient is seen patient is sitting on the edge of the bed. Patient is scheduled for a cystoscopy right ureteral stone removal retograde pyelogram stent placement this evening. She continues to have flank pain to the right side. Patient denied chest pain shortness a breath or hematuria. REVIEW OF SYSTEMS 12-point ROS reviewed with patient. All pertinent positives mentioned above. Otherwise negative, noncontributory, or nonpertinent. PHYSICAL EXAM GENERAL APPEARANCE: The patient is awake, alert, and oriented, in no acute cardiopulmonary distress. NEUROLOGICAL: Cranial nerves II-XII grossly intact. Motor is 5/5 in bilateral upper and lower extremities proximal to distal. No sensory deficits. HEENT: Face is symmetric. Pupils are equal and reactive. Extraocular movements are intact. NECK: Supple. No JVD. No thyromegaly. No submental, submandibular, pre- /postauricular, occipital or supraclavicular lymphadenopathy. CHEST: Normal chest expansion. No Telemetry. LUNGS: Absence of any rales, rhonchi or any wheezing. CARDIOVASCULAR: Regular. S1 and S2 normal. No appreciable rubs, murmurs or gallops. ABDOMEN: Soft, nontender, and nondistended. There is no rebound, voluntary guarding, or rigidity. : Deferred. No [place]. EXTREMITIES: Non-edematous and not cyanotic. No clubbing. Good capillary refill. SKIN: No skin breakdown. Vital Signs (last 8hr) Date Time Temp Pulse Resp B/P (MAP) Pulse Ox O2 Delivery O2 Flow Rate FiO2 11/29/24 08:00 98.2 81 20 131/91 96 Room Air 11/29/24 08:00 96 Room Air* 0 21 LABS: Laboratory: Test 11/29/24 05:24 11/29/24 04:57 11/28/24 04:28 11/27/24 17:12 Range/Units White Blood Count 10.3 4.8-10.8 K/uL Red Blood Count 4.56 4.00-5.50 MIL/uL Hemoglobin 13.6 12.0-16.0 g/dL Hematocrit 41.9 36-48 % Mean Corpuscular Volume 91.9 79-99 fL Mean Corpuscular Hemoglobin 29.8 27.0-33.0 pg Mean Corpuscular Hemoglobin Concent 32.5 32.0-36.0 g/dL Red Cell Distribution Width 13.2 11.0-15.5 % Platelet Count 262 130-400 K/uL Mean Platelet Volume 10.3 7.5-10.5 fL Immature Granulocyte % (Auto) 0.3 0-1 % Neutrophils (%) (Auto) 57.5 40.0-77.0 % Lymphocytes (%) (Auto) 30.7 21.0-51.0 % Monocytes (%) (Auto) 9.4 3.0-13.0 % Eosinophils (%) (Auto) 1.5 0.0-8.0 % Basophils (%) (Auto) 0.6 0.0-5.0 % Neutrophils # (Auto) 5.9 1.8-7.7 K/uL Lymphocytes # (Auto) 3.2 1.0-4.8 K/uL Monocytes # (Auto) 1.0 0.1-1.0 K/uL Eosinophils # (Auto) 0.15 0.00-0.70 K/uL Basophils # (Auto) 0.06 0.00-0.20 K/uL Absolute Immature Granulocyte (auto 0.03 0-1 K/uL Nucleated Red Blood Cells 0.0 0.0-0.19 % Sodium Level 137 136-145 mmol/L Potassium Level 4.0 3.5-5.1 mmol/L Chloride Level 102 101-111 mmol/L Carbon Dioxide Level 26 21-32 mmol/L Blood Urea Nitrogen 24 H 7-18 mg/dL Creatinine 1.4 H 0.5-1.0 mg/dL Glomerular Filtration Rate Calc 39 >90 mL/min Random Glucose 108 H 70-105 mg/dL Total Calcium 9.1 8.5-10.1 mg/dL Magnesium Level 2.10 1.80-2.40 mg/dL Total Bilirubin 0.5 0.2-1.0 mg/dL Aspartate Amino Transf (AST/SGOT) 21 10-37 U/L Alanine Aminotransferase (ALT/SGPT) 22 12-78 U/L Alkaline Phosphatase 81 50-136 U/L Total Protein 7.6 6.0-8.3 g/dL Albumin 3.4 L 3.5-5.0 g/dL Whole Blood Glucose 102 70-110 MG/DL Hemoglobin A1c 6.1 H 4.0-6.0 % Estimated Average Glucose (eAG) 128 H 70-126 mg/dL Phosphorus Level 3.5 2.5-4.9 mg/dL Thyroid Stimulating Hormone (TSH) 2.15 0.36-3.74 uIU/mL Urine Color COLORLESS YELLOW Urine Appearance CLEAR CLEAR Urine pH 5.5 5.0-8.0 Urine Specific [place] 1.004 1.001-1.031 Urine Protein NEGATIVE NEGATIVE mg/dL Urine Glucose (UA) NEGATIVE NEGATIVE mg/dL Urine Ketones NEGATIVE NEGATIVE mg/dL Urine Occult Blood SMALL H NEGATIVE Urine Nitrate NEGATIVE NEGATIVE Urine Bilirubin NEGATIVE NEGATIVE mg/dL Urine Urobilinogen 0.2 0.2-1.0 mg/dL Urine Leukocyte Esterase 250 H NEGATIVE Gloria/uL Urine RBC 0-1 0-1 /HPF Urine WBC 11-25 H 0-1 /HPF Urine Squamous Epithelial Cells RARE 0-2 /HPF Urine Bacteria RARE None Seen /HPF Current Medications Medications (Trade) Dose Ordered Sig/Luis Alfredo Route PRN Reason Start Time Stop Time Status Last Admin Dose Admin Acetaminophen (TYLenol 325MG TAB) 650 mg Q6H PRN PO FEVER/MILD PAIN LEVEL 1-3 11/28/24 00:00 12/28/24 00:00 Acetaminophen (TYLenol 650MG SUPPOSITORY) 650 mg Q6H PRN RC FEVER / MILD PAIN 1-3 IF NPO 11/28/24 00:00 12/28/24 00:00 Acetaminophen/ Hydrocodone Bitart (NORco 5/325MG) 1 tab Q6H PRN PO PAIN LEVEL 4 TO 6 11/28/24 00:00 11/28/24 07:41 DC Acetaminophen/ Hydrocodone Bitart (NORco 5/325MG) 2 tab Q6H PRN PO PAIN LEVEL 7 TO 10 11/27/24 23:45 12/02/24 23:44 11/28/24 22:46 2 TAB Docusate Sodium (COLace 100MG CAP) 100 mg BID PRN PO c 11/28/24 00:00 12/28/24 00:00 Hydromorphone HCl (DiLAUDid 1MG INJ) 1 mg ONCE IVP 11/27/24 19:30 11/27/24 23:56 DC 11/27/24 19:17 1 MG Hydromorphone HCl (DiLAUDid 1MG INJ) 1 mg Q4H PRN IVP SEVERE PAIN (7-10) 11/28/24 00:00 11/28/24 07:41 DC Insulin Human Regular (humuLIN R 100 UNIT/ML 3ML) INSULIN SLIDING SCAL... ACHS SQ 11/28/24 07:30 12/28/24 07:29 Ketorolac Tromethamine (toRADol) 15 mg ONCE IV 11/27/24 17:30 11/27/24 22:30 DC 11/27/24 18:07 15 MG Ketorolac Tromethamine (toRADol) 15 mg Q6H PRN IM MODERATE PAIN (4-6) 11/28/24 00:00 12/03/24 00:00 11/29/24 00:26 15 MG Labetalol HCl (TRANdate 20MG SYG) 10 mg Q2H PRN IV SBP GREATER THAN 180 11/28/24 00:00 12/28/24 00:00 Lactated Ringer's 1,000 ml @ 75 mls/hr [id number] IV 11/28/24 00:00 12/28/24 00:00 11/28/24 00:35 75 MLS/HR Lactulose (Constulose 20gm/ 30ml Udcup) 20 gm Q6H PRN PO CONSTIPATION 11/28/24 00:00 12/28/24 00:00 Levofloxacin/ Dextrose (LEvaquIN 750 MG/ D5W 150 ML) 750 mg Q48H IV 11/27/24 23:50 12/07/24 23:49 11/28/24 00:35 750 MG Magnesium Sulfate 50 ml @ 0 mls/hr PROTOCOL PRN IV low mag level 11/28/24 08:30 12/28/24 08:29 Metoprolol Succinate (TopROL XL) 25 mg DAILY PO 11/28/24 14:00 12/28/24 13:59 11/29/24 09:24 25 MG Morphine Sulfate (morPHINE 2MG SYG) 2 mg ONCE IVP 11/27/24 18:00 11/27/24 23:00 DC 11/27/24 18:09 2 MG Ondansetron HCl (zoFRAN 4MG INJ) 4 mg Q6H PRN IVP NAUSEA/VOMITING 11/28/24 00:00 12/28/24 00:00 Pantoprazole Sodium (PROTonix 40MG TAB) 40 mg DAILY PO 11/28/24 09:00 12/28/24 08:59 11/29/24 09:24 40 MG Potassium Chloride 100 ml @ 100 mls/hr AD PRN IV POTASSIUM PROTOCOL 11/28/24 08:30 12/28/24 08:29 Potassium Chloride (K-Dur/Klor-Con 20meq) 20 meq AD PRN PO POTASSIUM PROTOCOL 11/28/24 08:30 12/28/24 08:29 Potassium Chloride (KCl 10% Elixir 20meq/15ml) 20 meq AD PRN PO POTASSIUM PROTOCOL 11/28/24 08:30 12/28/24 08:29 Sodium Chloride 1,000 ml @ 0 mls/hr ONCE IV 11/27/24 17:30 11/28/24 17:29 DC 11/27/24 18:07 1,000 MLS/HR Tamsulosin HCl (FloMAX) 0.4 mg DAILY PO 11/28/24 09:00 12/28/24 08:59 11/29/24 09:24 0.4 MG Temazepam (restORIL 15 MG CAP) 15 mg HS PRN PO INSOMNIA/SLEEP 11/28/24 00:00 12/28/24 00:00 DIAGNOSTICS / RADIOLOGY: [ ] ASSESSMENT: 4.7 mm calculus within the far distal right ureter just proximal to the right ureterovesicular junction contributing to moderate right hydroureteronephrosis, per CT on 11/27/2024 Nonobstructing bilateral nephrolithiasis, per CT on 11/27/2024 Chronic degenerative multi fibroid uterus, per CT on 11/27/2024 Small hiatal hernia, per CT on 11/27/2024 Acute complicated cystitis, POA Trace bilateral pleural effusions, per CT on 11/27/2024 Acute kidney injury, ATN Acute dehydration Leukocytosis Electrolyte derangement (hyponatremia, hypochloremia) Chronic problem list: AFib, GERD, hypercholesteremia, coronary artery disease, hypertension, IBS, kidney stones, sleep apnea Multiple antibiotic allergies (penicillin, nitrofurantoin, sulfa, trimethoprime PLAN: -Admit to medical floor. -Consult urologist. scheduled for cystoscopy right ureteral stone removal retograde pyelogram stent placement antibiotic: Levaquin 750 mg p.o. daily. IVF's; LR at 75 mL will continue will get a bolus 500 ml x1. will monitor bun and creatinine: ongoing surveillance Flomax 0.4 mg po daily replaced electrolytes as needed basis to keep K+ above 4.0 and Mag above 2.0 -P.r.n. medications for: cont with Pain management, -Glucometer checks AC & HS needed with insulin regular sliding scale coverage as needed. -GI and DVT prophylaxis: Protonix and Lovenox all questions answered further orders as response to tx and specialist recommendations. ATTESTATION BY PHYSICIAN I have seen and examined the patient. I reviewed the documentation, medical decision making, and treatment plan as noted by the mid-level provider above. I agree with the findings and plan of care. MAKSIM ORLANDO MD, ELIZABETH NP November 29, 2024 11:15
[2024-11-29] MEDS ORDERED: MIDAZOLAM HCL 1 MG/ML 2ML VIAL ONE (17:50)
[2024-11-29] MEDS ORDERED: rocuRONium bROMide 10MG/1ML 5ML VL ONE (17:51)
[2024-11-29] MEDS ORDERED: FENTanyl CITRate PF 50 MCG/1 ML 2ML VIAL ONE ×3 (17:51→21:47)
[2024-11-29] MEDS ORDERED: proPOFol 10 MG/ML 20ML VIAL IV ONE (17:51)
[2024-11-29] MEDS ORDERED: phenylEPHRINE HCL 10 MG/ML 1ML VIAL IV ONE (19:39)
[2024-11-29] MEDS ORDERED: ondanSETRON 4MG INJ ONE (20:15)
[2024-11-29] MEDS ORDERED: ceFAZolin SODIUM 1 GM VIAL ONE (20:39)
--- NOTE | 2024-11-29 20:50 | NUR ---
NURSING NOTES PATIENT TAKEN TO OR AROUND 1999 FOR CYSTOSCOPY IN STABLE CONDITION,AAOX4. DENIES C/O PAIN. RESP. EVEN AND UNLABORED.
[2024-11-29] MEDS ORDERED: IOHEXOL-350 50ML VIAL IV ONE (20:59)
[2024-11-29] MEDS: IOHEXOL-350 50ML VIAL IV ONE (21:20)
[2024-11-29] MEDS ORDERED: GLYCOPYRROLATE 0.2 MG/ML 5 ML VIAL ONE (21:47)
[2024-11-29] MEDS ORDERED: ketOROlac 30MG VIAL (30MG/ML) ONE ×2 (21:47→21:48)
[2024-11-29] MEDS ORDERED: NEOSTIGMINE METHYLSULFATE 1MG/ML IV ONE (21:47)
--- NOTE | 2024-11-29 21:59 | OP ---
Operative Note: DATE OF PROCEDURE: 11/29/24 SURGEON: ZOYA REMY MD AUTOMOTIVE BRAKE SPECIALIST: Operating room staff ANESTHESIA: General anesthesia ANESTHESIOLOGIST/ACID CONDENSER: Anesthesia staff PREOPERATIVE DIAGNOSIS: 1. Obstructing 6 mm calculus in the right distal ureter 2. Right hydronephrosis POSTOPERATIVE DIAGNOSIS: 1. Obstructing 6 mm calculus in the right distal ureter 2. Right hydronephrosis 3. Right distal ureteral stricture SYNOPSIS: Right ureteral Stricture dilation performed, stone extracted and stent placed PROCEDURE: 1. 00500 Cystourethroscopy with right ureteroscopy and manipulation and removal of a right distal ureteral calculus 2. 05599 Cystourethroscopy with right ureteroscopy with treatment of a right distal ureteral stricture 3. 54649 Cystourethroscopy with insertion of a right ureteral stent 4. 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 Was 1st seen at [facility], was discharged home on expectant management. Came to [facility] yesterday morning was admitted on the floor managed conservatively. No clinical improvement, recommended for stone intervention for which she presented this evening. DESCRIPTION OF PROCEDURE: Patient identified in the holding area, consent verified. Patient received 2 g of Ancef and brought to the operating suite. She was placed in the supine position, after induction she underwent general endotracheal anesthesia. Next she was placed in low lithotomy, her genitalia was prepped she was draped and a time-out was performed. We introduced a standard cystoscope 22 Ethiopian with a 30 degree endoscope through meatus which was patent. Urethra was normal. We entered the bladder severely four quadrants no abnormalities or lesions identified. Ureteral orifice x2 identified in yurok positions effluxing clear urine. The right UO identified cannulated with a an open-ended ureteral catheter and a retrograde pyelogram was obtained. Hydroureteronephrosis appreciated. We advanced a wire into the right collecting system at this point we noticed effluxing of purulent urine. Next with the wire in place we attempted semi-rigid ureteroscopy by encountered a right distal ureteral stricture. This was treated in a segmental fashion using a 15 Ethiopian by 10 cm ureteral balloon dilator. Once this was completed we proceeded with ureteroscopy encountered the stone. We used a ZeroTip basket to remove the stone in his entirety and sent it for chemical analysis. Once the stone was completely removed, retrograde pyelogram showed persistent hydro nephrosis so a decision was made to place a seven Ethiopian by 22 cm double-J stent with the appropriate proximal and distal coils. Bladder was empty satisfactorily, there were no complications. Disposition: Patient will be transferred back to the floor once she meets criteria, we will recommend discharge from a urological standpoint and for her to see us in our office in [place] 10-14 days for stent removal ZOYA REMY MD November 29, 2024 21:59
[2024-11-29] MEDS: hydroMORPHone 1 MG INJ ONE (22:23)
[2024-11-29] MEDS: hydroMORPHone 1 MG INJ IVP STA (23:31)
[2024-11-30] VITALS (8 sets, daily range): BP systolic 132–165; BP diastolic 73–109; PULSE 66–96; RESP 18–20; TEMP 97.4–98.3; O2SAT 98
[2024-11-30 03:52] LABS: BASOPHILS # (AUTO) 0.03 K/uL (0.00-0.20); BASOPHILS % (AUTO) 0.4 % (0.0-5.0); EOSINOPHILS # (AUTO) 0.11 K/uL (0.00-0.70); EOSINOPHILS % (AUTO) 1.6 % (0.0-8.0); IMMATURE GRANULOCYTE ABSOLUTE 0.02 K/uL (0-1); LYMPHOCYTES # (AUTO) 1.8 K/uL (1.0-4.8); MEAN CORPUSCULAR HEMOGLOBIN 29.8 pg (27.0-33.0); MEAN CORPUSCULAR VOLUME 90.2 fL (79-99); MONOCYTES # (AUTO) 0.7 K/uL (0.1-1.0); MONOCYTES % (AUTO) 9.8 % (3.0-13.0); NEUTROPHILS # (AUTO) 4.1 K/uL (1.8-7.7); NEUTROPHILS % (AUTO) 60.9 % (40.0-77.0); PLATELET COUNT (AUTO) 215 K/uL (130-400); WHITE BLOOD COUNT (AUTO) 6.7 K/uL (4.8-10.8)
[2024-11-30] MEDS: traMADol HCL 50 MG TABLET PO PRN (04:09)
[2024-11-30 04:17] LABS: BILIRUBIN,TOTAL 0.4 mg/dL (0.2-1.0); CREATININE 1.1 mg/dL (0.5-1.0); MAGNESIUM 1.7 mg/dL (1.80-2.40); POTASSIUM 3.7 mmol/L (3.5-5.1); TOTAL PROTEIN, SERUM 6.8 g/dL (6.0-8.3)
[2024-11-30] MEDS: FAMOTIDINE 20MG VIAL IV ONE (07:12)
[2024-11-30] MEDS: ketOROlac 30MG VIAL (30MG/ML) ONE (07:12)
[2024-11-30] MEDS: doCUSate SODIUM 100 MG CAP PO PRN (08:16)
--- NOTE | 2024-11-30 09:10 | HMCIMG ---
Fluoroscopic guidance History: RT Ureteral calculus, Cysto Fluoroscopic guidance provided. Procedure by ordering physician in operating room suite with fluoroscopic guidance. Several spot images were obtained. Impression: Fluoroscopic guidance.
[2024-11-30] MEDS ORDERED: LEVO-70 PO (11:44)
[2024-11-30] MEDS ORDERED: TAMS-55 PO (11:57)
--- NOTE | 2024-11-30 12:04 | DS ---
Discharge Summary Hospital Course Summary: admission date: 11/27/24 PCP: Kiko Max MD Ms. Patel is a 74-year-old female with a history of A-Fib, GERD, High Cholesterol, Heart Disease, Hypertension, IBS, Kidney Stone, and sleep apnea who presented to the emergency department for evaluation of right flank pain. The patient reports being diagnosed with a right ureter stone three days ago at [facility] ([place]). She was discharged home. However over the last couple of days her pain has progressively worsened. She stated the stone measures approximately 2 mm. on this admission CT abdomen and pelvis without contrast revealed a 1. 4.7 mm calculus within the far distal right ureter just proximal to the right ureterovesicular junction contributing to moderate right hydroureteronephrosis. 11/28/24 patient is seen patient was evaluated patient is fully awake alert oriented x3. patient has dull pain to her right flank was medicated earlier waiting for urologists recommendations. Answer all questions. 11/29/24 patient is seen patient is sitting on the edge of the bed. Patient is scheduled for a cystoscopy right ureteral stone removal retograde pyelogram stent placement this evening. She continues to have flank pain to the right s dieter. Patient denied chest pain shortness a breath or hematuria. 11/30/24 patient is clinically stable for discharge no fevers no chills or flank pain. Patient is voiding adequately. Status post stent placement given to obstructive 6 mm calculus in the right distal ureter right hydronephrosis in right distal urethral stricture we will follow-up with urology 10-14 days for removal of stent. 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(s): RUN DATE: 11/29/24 [facility] 1 RUN TIME: [id number] [address] Department of [employer] [facility] # [id number] Occupational Therapist Aide: Ovidio Alejandre DO Specimen Report PATIENT: YURIY PATEL ACCT: [id number] LOC: 4D U: [id number] AGE/SX: 74/F ROOM: 423 RE11/27/[address]: CARLOS ARGUETA MD : [id number] BED: 1 DIS: STATUS: ADM IN TLOC: SPEC: [id number] TAMARA: 11/27/24-1711 STATUS: COMP REQ: [id number] RECD: 11/27/24-[address]: VIN GALICIA SOURCE: URINE CC ENTR: 11/27/[address]: KIKO MAX MD [facility]: JESSICA CHACON DO ORDERED: URINE CULTURE Procedure Result Sameer Date-Time URINE CULTURE Final 11/29/24-633 REPORT URINE 50,000 TO 100,000 CFU MIXED CAROLINE CONTAMINATION NO FURTHER STUDIES PENDING REASON: r/flank pain r/o ureter stone ORDERING PHYSICIAN: VIN GALICIA PROCEDURE: ABD PEL WO - CT ABDOMEN/PELVIS W/O CONTRAST CT ABDOMEN WITHOUT CONTRAST. CT PELVIS WITHOUT CONTRAST. INDICATION: Right flank pain TECHNIQUE: Routine transaxial imaging using 5 mm slice thickness through the abdomen and pelvis without the administration of IV contrast. Thin slice reconstructions are also provided. Coronal and sagittal reformatted images acquired for interpretation. CT was performed with one or more of the following dose reduction techniques: Automated exposure control, adjustment of the mA and/or kV according to patient size, or use of iterative reconstruction technique. COMPARISON: None FINDINGS: ON NONCONTRAST IMAGING: ABDOMEN: Heart size is normal. Trace bilateral pleural effusions. Small hiatal hernia. 4 mm curvilinear calculus is nonobstructing at the upper pole of the left kidney and punctate nonobstructing calculus detected at the midportion. Additional 2 mm nonobstructing calculus at the lower pole of the left kidney. Tiny simple left renal cyst noted. 4.7 mm calculus within the far distal right ureter just proximal to the right ureterovesicular junction contributing to moderate right hydroureteronephrosis. 4.7 mm curvilinear calculus near the lower portion of the right kidney and smaller 2 mm nonobstructing calculus at the upper portion of the right kidney. A couple of small simple right renal cysts noted. The liver is normal in size and smooth in contour without biliary duct dilation. 10.0 mm simple left hepatic lobe cyst. The spleen is normal in size and attenuation. The gallbladder appears normal. The pancreas appears normal without pancreatic duct dilation. The adrenal glands appear normal. No significant abdominal, retrocrural or retroperitoneal adenopathy noted. No evidence for intra-abdominal free air or organized fluid collection. . Mild calcific plaque is noted along the abdominal aortic and iliac vessel johnson without aneurysmal dilation. PELVIS: No abnormal calcifications within the urinary bladder or distal ureters. No evidence for free air or organized pelvic fluid collection. No significant pelvic adenopathy detected. Visualized small and large bowel loops appear unremarkable. Terminal ileum appears unremarkable. The appendix is not well-visualized in its entirety. 2.2 cm partially-calcified uterine fibroid, and a few additional smaller fibroids. Extremely shallow lumbar dextroscoliosis. IMPRESSION: 1. 4.7 mm calculus within the far distal right ureter just proximal to the right ureterovesicular junction contributing to moderate right hydroureteronephrosis. 2. Nonobstructing bilateral nephrolithiasis. 3. Chronic degenerative multi fibroid uterus. 4. Small hiatal hernia. 5. Trace bilateral pleural effusions. Procedure(s): Operative Note: DATE OF PROCEDURE: 11/29/24 SURGEON: ZOYA REMY MD DIETARY SUPERVISOR: Operating room staff ANESTHESIA: General anesthesia ANESTHESIOLOGIST/SAND DIGGER: Anesthesia staff PREOPERATIVE DIAGNOSIS: 1. Obstructing 6 mm calculus in the right distal ureter 2. Right hydronephrosis POSTOPERATIVE DIAGNOSIS: 1. Obstructing 6 mm calculus in the right distal ureter 2. Right hydronephrosis 3. Right distal ureteral stricture SYNOPSIS: Right ureteral Stricture dilation performed, stone extracted and stent placed PROCEDURE: 1. 30134 Cystourethroscopy with right ureteroscopy and manipulation and removal of a right distal ureteral calculus 2. 85089 Cystourethroscopy with right ureteroscopy with treatment of a right distal ureteral stricture 3. 39871 Cystourethroscopy with insertion of a right ureteral stent 4. 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 Was 1st seen at [facility], was discharged home on expectant management. Came to [facility] yesterday morning was admitted on the floor managed conservatively. No clinical improvement, recommended for stone intervention for which she presented this evening. DESCRIPTION OF PROCEDURE: Patient identified in the holding area, consent verified. Patient received 2 g of Ancef and brought to the operating suite. She was placed in the supine position, after induction she underwent general endotracheal anesthesia. Next she was placed in low lithotomy, her genitalia was prepped she was draped and a time-out was performed. We introduced a standard cystoscope 22 Algerian with a 30 degree endoscope through meatus which was patent. Urethra was normal. We entered the bladder severely four quadrants no abnormalities or lesions identified. Ureteral orifice x2 identified in [place] positions effluxing clear urine. The right UO identified cannulated with a an open-ended ureteral catheter and a retrograde pyelogram was obtained. Hydroureteronephrosis appreciated. We advanced a wire into the right collecting system at this point we noticed effluxing of purulent urine. Next with the wire in place we attempted semi-rigid ureteroscopy by encountered a right distal ureteral stricture. This was treated in a segmental fashion using a 15 Algerian by 10 cm ureteral balloon dilator. Once this was completed we proceeded with ureteroscopy encountered the stone. We used a ZeroTip basket to remove the stone in his entirety and sent it for chemical analysis. Once the stone was completely removed, retrograde pyelogram showed persistent hydro nephrosis so a decision was made to place a seven Algerian by 22 cm double-J stent with the appropriate proximal and distal coils. Bladder was empty satisfactorily, there were no complications. Disposition: Patient will be transferred back to the floor once she meets criteria, we will recommend discharge from a urological standpoint and for her to see us in our office in [place] 10-14 days for stent removal ZOYA REMY MD November 29, 2024 21:59 Electronically Signed by: ZOYA REMY Assessment/Plan: Discharged dx/s 4.7 mm calculus within the far distal right ureter just proximal to the right ureterovesicular junction contributing to moderate right hydroureteronephrosis, per CT on 11/27/2024 s/p; Cystoscopy findings: Obstructing 6 mm calculus in the right distal ureter, right hydronephrosis and right distal ureteral stricture Right ureteral Stricture dilation performed, stone extracted and stent placed Nonobstructing bilateral nephrolithiasis, per CT on 11/27/2024 Chronic degenerative multi fibroid uterus, per CT on 11/27/2024 Small hiatal hernia, per CT on 11/27/2024 Acute complicated cystitis, POA Trace bilateral pleural effusions, per CT on 11/27/2024 Acute kidney injury, ATN Acute dehydration Leukocytosis Electrolyte derangement (hyponatremia, hypochloremia) Chronic problem list: AFib, GERD, hypercholesteremia, coronary artery disease, hypertension, IBS, kidney stones, sleep apnea Multiple antibiotic allergies (penicillin, nitrofurantoin, sulfa, trimethoprime PLAN: ADMISSION DATE: 11/30/2024 DISCHARGE DATE: 11/27/2024 DISPOSITION: Home CONDITION: Stable FLOWER BUNCHER OR PICKER(S): Urology FOLLOW UP APPOINTMENT(S): PCP: 2-[address] Prakash Boyer 1-2 wks. PROCEDURES: Cystourethroscopy see attachment IMAGING (S) report attached to summary : CT abd/pelvis MICROBIOLOGY: report attached to summary;urine ACTIVITY: ab kristin HOME MEDICATIONS: will continue upon discharged CHANGES ON HOME MEDICATIONS; none NEW MEDICATIONS see below TEACHING: side effects and adverse reaction of new medications Emergency instructions: The patient was instructed to present to the nearest Emergency Department or call 911 should their symptoms return or worsen. Discharge Instructions: REASON: r/flank pain r/o ureter stone ORDERING PHYSICIAN: VIN GALICIA PROCEDURE: ABD PEL WO - CT ABDOMEN/PELVIS W/O CONTRAST CT ABDOMEN WITHOUT CONTRAST. CT PELVIS WITHOUT CONTRAST. INDICATION: Right flank pain TECHNIQUE: Routine transaxial imaging using 5 mm slice thickness through the abdomen and pelvis without the administration of IV contrast. Thin slice reconstructions are also provided. Coronal and sagittal reformatted images acquired for interpretation. CT was performed with one or more of the following dose reduction techniques: Automated exposure control, adjustment of the mA and/or kV according to patient size, or use of iterative reconstruction technique. COMPARISON: None FINDINGS: ON NONCONTRAST IMAGING: ABDOMEN: Heart size is normal. Trace bilateral pleural effusions. Small hiatal hernia. 4 mm curvilinear calculus is nonobstructing at the upper pole of the left kidney and punctate nonobstructing calculus detected at the midportion. Additional 2 mm nonobstructing calculus at the lower pole of the left kidney. Tiny simple left renal cyst noted. 4.7 mm calculus within the far distal right ureter just proximal to the right ureterovesicular junction contributing to moderate right hydroureteronephrosis. 4.7 mm curvilinear calculus near the lower portion of the right kidney and smaller 2 mm nonobstructing calculus at the upper portion of the right kidney. A couple of small simple right renal cysts noted. The liver is normal in size and smooth in contour without biliary duct dilation. 10.0 mm simple left hepatic lobe cyst. The spleen is normal in size and attenuation. The gallbladder appears normal. The pancreas appears normal without pancreatic duct dilation. The adrenal glands appear normal. No significant abdominal, retrocrural or retroperitoneal adenopathy noted. No evidence for intra-abdominal free air or organized fluid collection. . Mild calcific plaque is noted along the abdominal aortic and iliac vessel johnson without aneurysmal dilation. PELVIS: No abnormal calcifications within the urinary bladder or distal ureters. No evidence for free air or organized pelvic fluid collection. No significant pelvic adenopathy detected. Visualized small and large bowel loops appear unremarkable. Terminal ileum appears unremarkable. The appendix is not well-visualized in its entirety. 2.2 cm partially-calcified uterine fibroid, and a few additional smaller fibroids. Extremely shallow lumbar dextroscoliosis. IMPRESSION: 1. 4.7 mm calculus within the far distal right ureter just proximal to the right ureterovesicular junction contributing to moderate right hydroureteronephrosis. 2. Nonobstructing bilateral nephrolithiasis. 3. Chronic degenerative multi fibroid uterus. 4. Small hiatal hernia. 5. Trace bilateral pleural effusions. DICTATED BY: SOPHIA GRANT MD DATE: 11/27/241814 ELECTRONICALLY SIGNED BY: SOPHIA GRANT MD DATE: 11/28/24 09 Home Medications: Reported Medications Metoprolol Succinate (Metoprolol Succinate) 25 Mg Tab.er.24h, 1.5 TAB PO DAILY 11/28/24 New Medications: Levofloxacin (Levofloxacin) 500 Mg Tablet 1 TAB PO DAILY for 3 Days, #3 TAB 0 Refills Tamsulosin HCl (Flomax) 0.4 Mg Cap.er.24h 0.4 MG PO DAILY for 14 Days, #14 CAPSULE.DR Continued Medications: Metoprolol Succinate (Metoprolol Succinate) 25 Mg Tab.er.24h 1.5 TAB PO DAILY Time spent arranging discharge: 31-60 minutes ATTESTATION BY PHYSICIAN I have seen and examined the patient. I reviewed the documentation, medical d ecision making, and treatment plan as noted by the mid-level provider above. I agree with the findings and plan of care. MAKSIM ORLANDO MD, ELIZABETH NP November 30, 2024 12:04
[2024-11-30] MEDS: MAGNESIUM OXIDE 400 MG TABLET PO ONE (12:21)
--- NOTE | 2024-11-30 12:40 | NUR ---
DISCHARGE DISCHARGE ORDERS OBTAINED FOR PATIENT TO BE DISCHARGED HOME. DISCHARGE INSTRUCTIONS AND DOCUMENTATION GIVEN TO PATIENT AND AT BEDSIDE. BOTH VOICED UNDERSTANDING. IV DISCONTINUED, CATHETER INTACT, NO S/S OF INFECTION NOTED TO AREA. PATIENT TOLERATED WELL. BANDS REMOVED. PENDING TRANSPORTATION.
--- NOTE | 2024-11-30 13:14 | NUR ---
DISCHARGE PATIENT LEFT VIA WHEELCHAIR ACCOMPANIED BY , NO S/S OF DISTRESS NOTED. PATIENT REQUESTED TO MAKE OWN FOLLOW UP APPOINTMENT WITH DR. REMY DUE TO OFFICE BEING CLOSED AT THIS TIME AND DOES NOT WANT TO WAIT FOR APPOINTMENT TO BE MADE. PROVIDED CONTACT INFORMATION. PATIENT VOICED UNDERSTANDING.
== END 2024-11-30 13:15 | disposition home or self-care (01) | DRG 660 ==
LOC: EDH 16:49 → EDHIP 20:05 → 4DH 22:40
PROVIDERS: ADMIT Internal Medicine Sleep Medicine; ATTEND Internal Medicine Sleep Medicine
PROC: 0T768DZ Dilation of Right Ureter with Intraluminal Device, Via Natural or Artificial Opening Endoscopic (ICD-10-PCS; principal; 2024-11-29 20:40)
PROC: 0TC68ZZ Extirpation of Matter from Right Ureter, Via Natural or Artificial Opening Endoscopic (ICD-10-PCS; 2024-11-29 20:40)
PROC: BT1D1ZZ Fluoroscopy of Right Kidney, Ureter and Bladder using Low Osmolar Contrast (ICD-10-PCS; 2024-11-29 20:40)
DX: N13.6 Pyonephrosis (principal); E87.1 Hypo-osmolality and hyponatremia; N17.0 Acute kidney failure with tubular necrosis; D25.9 Leiomyoma of uterus, unspecified; K44.9 Diaphragmatic hernia without obstruction or gangrene; E87.8 Other disorders of electrolyte and fluid balance, not elsewhere classified; E78.00 Pure hypercholesterolemia, unspecified; E86.0 Dehydration; I10 Essential (primary) hypertension; I25.10 Atherosclerotic heart disease of native coronary artery without angina pectoris; I48.91 Unspecified atrial fibrillation; K21.9 Gastro-esophageal reflux disease without esophagitis; Z87.442 Personal history of urinary calculi; Z88.0 Allergy status to penicillin; Z88.1 Allergy status to other antibiotic agents
CPT/HCPCS: 36415; 74176; 74420; 80048; 80053; 81001; 82360; 82948; 83036; 83735; 84100; 84443; 85025; 85027; 87086; 96361; 96374; 96375; 99285; C1726; C1758; C1769; C2617; G0378; J0690; J1171; J1885; J1956; J2250; J2270; J2371; J2405; J2704; J2710; J3010; J3490; J7030; J7120; Q9967; A4222; A4223; A4358; A4930

== ENCOUNTER 2025-06-09 19:19 | Emergency (ER) | payer MEDICARE ==
[~2025-06-09] VITALS: Ht 152.4 cm; Wt 81.6 kg
[~2025-06-09 19:19] MED LIST: LEVO-70 PO; METO-408 PO; TAMS-55 PO
--- NOTE | 2025-06-09 19:58 | ERN ---
ED Note History of Present Illness Stated Complaint: BLOOD IN URINE. RECTAL PAIN Chief Complaint: Multiple Complaints Time Seen by MD: 19:21 Dictation: Patient is a 75-year-old female with a past medical history of IBS who comes today complaining of gastritis, on and off diarrhea and constipation, kidney stone stones who reports been told that she has kidney stones 7 in the right side and 5 in the left side, today she started having left abdominal pain associated with the hematuria. Patient is states that it has looked like when she had prior episode of kidney stones issues. Allergies: Coded Allergies: Penicillins (Unverified Allergy, Unknown, 11/27/24) lidocaine (Unverified Allergy, Unknown, 06/09/25) nitrofurantoin (Unverified Allergy, Unknown, 11/27/24) sulfamethoxazole (Unverified Allergy, Unknown, 11/27/24) trimethoprim (Unverified Allergy, Unknown, 11/27/24) Uncoded Allergies: BLOOD THINNERS (Allergy, Mild, 06/09/25) STEOIDS (Allergy, Unknown, 11/27/24) Home Meds Active Scripts Ketorolac Tromethamine (Toradol) 10 Mg Tab, 1 TAB PO Q6HPRN PRN for pain for 5 Days, #20 TAB 0 Refills Prov:SERGE PAUL MD 06/09/25 Tamsulosin HCl (Flomax) 0.4 Mg Cap.er.24h, 0.4 MG PO DAILY for 14 Days, #14 CAPSULE. Prov:JAMES HESS 11/30/24 Levofloxacin (Levofloxacin) 500 Mg Tablet, 1 TAB PO DAILY for 3 Days, #3 TAB 0 Refills Prov:JAMES HESS 11/30/24 Reported Medications Metoprolol Succinate (Metoprolol Succinate) 25 Mg Tab.er.24h, 1.5 TAB PO DAILY 11/28/24 Past Medical History Past Medical History: A-Fib, GERD, High Cholesterol, Heart Disease, Hypertension, IBS, Kidney Stone, Other Additional Past Medical Hx: SLEEP APNEA, IBS Surgical History: Tonsillectomy, Surgical History Other: BLT SHOULDERS, NECK PLATE, ADNOIDS, RT LEG, CARDIAC CL IP Review of System Dictation NEGATIVE EXCEPT PER HPI Constitutional: Negative for fever,chills, and weight loss Eyes: Negative for injury, pain,redness, and discharge ENT: Negative for injury,pain or swelling Cardiovascular: denies chest pain, palpitations, and edema Respiratory: Negative for shortness of breath, cough, and wheezing, Abdomen/GI: Abdominal pain, constipation and diarrhea reported Back: Negative for injury and pain : Blood in the urine MS/Extremity: Negative for injury and deformity Skin: Negative for rash, and discoloration Neuro: Negative for headache, weakness, numbness, tingling, and seizure Psych: Negative for suicide ideation, homicidal ideation, and hallucinations Initial Vital Sign VS Vital Signs Date Time Temp Pulse Resp B/P (MAP) Pulse Ox O2 Delivery O2 Flow Rate FiO2 06/09/25 19:21 97.9 90 18 166/92 98 Room Air 06/09/25 20:34 0 21 Physical Exam Dictation General: awake, alert, NAD Head/Face: Normocephalic, atraumatic Eyes: PERRL, EOMI, vision at baseline ENT: oral cavity clear, TMs clear, no signs of infection Neck: Trachea midline, supple, no nuchal rigidity Cardiovascular: RRR, normal S1/S2, No MRGs, no JVD Respiratory: CTAB, no respiratory distress, No rales or wheezes Abdomen: Left lower abdominal tenderness Skin: Warm, dry, normal turgor, no rash MS/Extremity: Pulses equal, no cyanosis, neurovascular intact, FROM Neuro: COAx4, GCS 15, strength 5/5, CN 2-12 intact, normal cerebellar exam, normal gait, Psych: Normal behavior, mood, and affect normal Results (Laboratory/Radiology) Laboratory/Radiology Laboratory Tests Test 06/09/25 19:38 06/09/25 19:59 Urine Color LIGHT-YELLOW (YELLOW) Urine Appearance CLEAR (CLEAR) Urine pH 5.5 (5.0-8.0) Urine Specific [place] 1.018 (1.001-1.031) Urine Protein 10 mg/dL (NEGATIVE) H Urine Glucose (UA) NEGATIVE mg/dL (NEGATIVE) Urine Ketones NEGATIVE mg/dL (NEGATIVE) Urine Occult Blood SMALL (NEGATIVE) H Urine Nitrate NEGATIVE (NEGATIVE) Urine Bilirubin NEGATIVE mg/dL (NEGATIVE) Urine Urobilinogen 0.2 mg/dL (0.2-1.0) Urine Leukocyte Esterase NEGATIVE Gloria/uL Urine RBC 2-5 /HPF (0-1) H Urine WBC 2-5 /HPF (0-1) H Urine Squamous Epithelial Cells RARE /HPF (0-2) Urine Bacteria None /HPF (None Seen) White Blood Count 7.8 K/uL (4.8-10.8) Red Blood Count 4.84 MIL/uL (4.00-5.50) Hemoglobin 14.3 g/dL (12.0-16.0) Hematocrit 43.4 % (36-48) Mean Corpuscular Volume 89.7 fL (79-99) Mean Corpuscular Hemoglobin 29.5 pg (27.0-33.0) Mean Corpuscular Hemoglobin Concent 32.9 g/dL (32.0-36.0) Red Cell Distribution Width 13.1 % (11.0-15.5) Platelet Count 258 K/uL (130-400) Mean Platelet Volume 10.1 fL (7.5-10.5) Nucleated Red Blood Cells 0.0 % (0.0-0.19) Sodium Level 137 mmol/L (136-145) Potassium Level 3.4 mmol/L (3.5-5.1) L Chloride Level 103 mmol/L (101-111) Carbon Dioxide Level 22 mmol/L (21-32) Blood Urea Nitrogen 21 mg/dL (7-18) H Creatinine 0.7 mg/dL (0.5-1.0) Glomerular Filtration Rate Calc 89 mL/min (>90) Random Glucose 106 mg/dL (70-105) H Total Calcium 9.0 mg/dL (8.5-10.1) ED Course ED Course Orders Procedure Category Date Status Time Urinalysis Profile LAB 06/09/25 Complete 19:28 Cbc Without LAB 06/09/25 Complete Differential 19:28 Basic Metabolic Panel LAB 06/09/25 Complete 19:28 Ct Abdomen/Pelvis W/O CT 06/09/25 Resulted Contrast 19:28 Ketorolac PHA 06/09/25 Complete Tromethamine 21:30 Current Medications Medications (Trade) Dose Ordered Sig/Luis Alfredo Route PRN Reason Start Time Stop Time Status Last Admin Dose Admin Ketorolac Tromethamine (ketOROlac troMETHamine) 10 mg ONCE ONCE PO 06/09/25 21:30 06/09/25 21:31 DC 06/09/25 21:26 Vital Signs Date Time Temp Pulse Resp B/P (MAP) Pulse Ox O2 Delivery O2 Flow Rate FiO2 06/09/25 21:38 98.4 84 18 160/84 98 Room Air* 0 21 06/09/25 20:34 86 18 164/85 98 Room Air* 0 21 06/09/25 19:21 97.9 90 18 166/92 98 Room Air Medical Decision Making MDM Patient with a past medical history of IBS kidney stones who presented to the ER complaining of episodes of diarrhea, constipation and left abdominal pain associated with hematuria. 1-kidney stones 2-gastritis 3-IBS exacerbation CBC, BMP CT abdomen and pelvis UA ordered KIDNEYS, URETERS, AND BLADDER: Multiple bilateral renal cysts, the largest measuring 3.2 x 2.6 cm at the lower pole of the right kidney. A few of them show hyperdense contents (25 HU), likely proteinaceous. Multiple bilateral renal calculi are present in the right kidney, the largest measuring 0.5 cm. 0.5 cm calculus in the urinary bladder near the left vesicoureteric junction. Mild left hydroureteronephrosis could be due to a recently passed calculus. Minimal bilateral perinephric fat stranding is noted. STOMACH AND BOWEL: Unremarkable. No bowel wall thickening or obstruction. APPENDIX: No CT features of acute appendicitis. PERITONEUM: No free fluid or free air. LYMPH NODES: No retroperitoneal or pelvic lymphadenopathy. REPRODUCTIVE: Multiple calcified fibroids in the uterus. No adnexal mass. VASCULATURE: The aorta shows atherosclerotic changes and its branches. The aorta is normal in caliber. No gross aneurysm. BONES: Moderate degenerative thoracolumbar spondylosis is present. No acute or aggressive osseous abnormality. Mild thoracolumbar dextroscoliosis. SOFT TISSUES: The soft tissues are unremarkable. IMPRESSION: Multiple bilateral renal calculi. 0.5 cm vesical calculus. Mild left hydroureteronephrosis, likely due to a recently passed calculus. Multiple bilateral renal cysts. Multiple calcified fibroids in the uterus. After review imagings looked like patient's past left kidney stone I will send the patient home on Toradol 10 mg p.r.n. for pain, as well Flomax 0.4 mg p.o. daily. Patient must follow up with the PCP urologist as outpatient. DX & DISP Disposition: Discharge Departure Impression: Primary Impression: Renal calculus, left Additional Impression: Hydronephrosis Condition: Stable Scripts Ketorolac Tromethamine (Toradol) 10 Mg Tab 1 TAB PO Q6HPRN PRN for pain for 5 Days, #20 TAB 0 Refills Prov: SERGE PAUL MD 06/09/25 Additional Instructions: RETURN TO ER FOR ANY ACUTE OR WORSENING SYMPTOMS. FOLLOW-UP IN 1-2 DAYS WITH PRIMARY PROVIDER FOR RECHECK OF TODAY'S SYMPTOMS. Referrals: NIRALI MAX MD (PCP) SERGE PAUL MD Jun 09, 2025 19:58
[2025-06-09 20:11] LABS: NUCLEATED RED BLOOD CELLS 0.0 % (0.0-0.19); PLATELET COUNT (AUTO) 258.0 K/uL (130-400); RED BLOOD CELL COUNT(AUTO) 4.84 MIL/uL (4.00-5.50); RED CELL DISTRIBUTION WIDTH 13.1 % (11.0-15.5); WHITE BLOOD COUNT (AUTO) 7.8 K/uL (4.8-10.8)
[2025-06-09 20:20] LABS: CREATININE 0.7 mg/dL (0.5-1.0); GLOMERULAR FILTR. RATE CALC 89.0 mL/min (>90); GLUCOSE,RANDOM 106.0 mg/dL (70-105); SODIUM SERUM 137.0 mmol/L (136-145); UREA NITROGEN, BLOOD 21.0 mg/dL (7-18)
[2025-06-09 20:24] LABS: ADD UA MICROSCOPIC YES; APPEARANCE,URINE CLEAR (CLEAR); GLUCOSE, URINE (UA) NEGATIVE (NEGATIVE); LEUKOCYTE ESTERASE ,URINE NEGATIVE Leu/uL (NEGATIVE); NITRATE,URINE NEGATIVE (NEGATIVE); OCCULT BLOOD,URINE SMALL (NEGATIVE)
[2025-06-09 20:27] LABS: SQUAMOUS EPITHELIAL CELL,UR RARE /HPF (0-2)
--- NOTE | 2025-06-09 20:54 | HMCIMG ---
EXAMINATION: CT Abdomen and Pelvis without intravenous contrast. CLINICAL HISTORY: Kidney stones. TECHNIQUE: Axial CT of the abdomen and pelvis without intravenous contrast. Multiplanar reformations were generated and reviewed. CONTRAST: No intravenous contrast. COMPARISON: None provided. FINDINGS: LUNG BASES: Minimal bilateral posterior pleural thickening with basal scarring. LIVER: The liver measures 13 cm and is normal in size. Subcentimeter cyst in the left lobe of the liver. GALLBLADDER AND BILE DUCTS: Unremarkable. No radioopaque gallstones. No biliary ductal dilatation. PANCREAS: Unremarkable in appearance. No calcifications. SPLEEN: Unremarkable in size and density. ADRENAL GLANDS: Unremarkable. KIDNEYS, URETERS, AND BLADDER: Multiple bilateral renal cysts, the largest measuring 3.2 x 2.6 cm at the lower pole of the right kidney. A few of them show hyperdense contents (25 HU), likely proteinaceous. Multiple bilateral renal calculi are present in the right kidney, the largest measuring 0.5 cm. 0.5 cm calculus in the urinary bladder near the left vesicoureteric junction. Mild left hydroureteronephrosis could be due to a recently passed calculus. Minimal bilateral perinephric fat stranding is noted. STOMACH AND BOWEL: Unremarkable. No bowel wall thickening or obstruction. APPENDIX: No CT features of acute appendicitis. PERITONEUM: No free fluid or free air. LYMPH NODES: No retroperitoneal or pelvic lymphadenopathy. REPRODUCTIVE: Multiple calcified fibroids in the uterus. No adnexal mass. VASCULATURE: The aorta shows atherosclerotic changes and its branches. The aorta is normal in caliber. No gross aneurysm. BONES: Moderate degenerative thoracolumbar spondylosis is present. No acute or aggressive osseous abnormality. Mild thoracolumbar dextroscoliosis. SOFT TISSUES: The soft tissues are unremarkable. IMPRESSION: Multiple bilateral renal calculi. 0.5 cm vesical calculus. Mild left hydroureteronephrosis, likely due to a recently passed calculus. Multiple bilateral renal cysts. Multiple calcified fibroids in the uterus. /[place]
[2025-06-09] MEDS ORDERED: KETO10 PO (21:10)
[2025-06-09 21:38] VITALS: BP 160/84; PULSE 84; RESP 18; TEMP 98.4; O2SAT 98
== END 2025-06-09 21:40 | disposition home or self-care (01) ==
LOC: EDH 19:19
DX: N13.2 Hydronephrosis with renal and ureteral calculous obstruction (principal); E78.00 Pure hypercholesterolemia, unspecified; G47.30 Sleep apnea, unspecified; I11.9 Hypertensive heart disease without heart failure; Z79.899 Other long term (current) drug therapy; Z87.442 Personal history of urinary calculi; Z88.0 Allergy status to penicillin; Z88.1 Allergy status to other antibiotic agents; Z88.2 Allergy status to sulfonamides; Z90.89 Acquired absence of other organs
CPT/HCPCS: 36415; 74176; 80048; 81001; 85027; 99284